=== PATIENT | male | born 1965 | race Caucasian/White ===

== ENCOUNTER 2021-07-05 04:00 | Emergency (ER) | payer BC, SELFPAY ==
[2021-07-05 04:03] VITALS: BP 91/43; PULSE 91; RESP 18; TEMP 35.8; O2SAT 100; BMI 33.4
--- NOTE | 2021-07-05 04:07 | XRR_ITS ---
PROCEDURE INFORMATION: Exam: XR Chest Exam date and time: 07/05/2021 4:07 AM Age: 55 years old Clinical indication: Dyspnea; Patient HX: SOB tonight; Additional info: Syncope TECHNIQUE: Imaging protocol: XR of the chest. Views: 1 view. COMPARISON: CR [facility] Ribs LEFT 03/16/2019 12:27 PM FINDINGS: Lungs: Unremarkable. No consolidation. Pleural spaces: Unremarkable. No pleural effusion. No pneumothorax. Heart/Mediastinum: Unremarkable. No cardiomegaly. Bones/joints: Unremarkable. XR/XR chest 1V portable [id number] IMPRESSION: No acute findings.
--- NOTE | 2021-07-05 04:08 | ECG_ITS ---
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 Measurements Intervals [place] Rate: 84 P: 25 ME: 156 QRS: 14 QRSD: 80 T: 29 QT: 366 QTc: 434 Interpretive Statements SINUS RHYTHM LOW QRS VOLTAGE IN PRECORDIAL LEADS [QRS DEFLECTION < 1.0 mV IN CHEST LEADS] INTERPRETATION BASED ON A DEFAULT AGE OF 40 YEARS No previous ECG available for comparison Electronically Signed On 07-05-2021 18:05:26 CDT by Mare Gillis M.D. [id number] f
--- NOTE | 2021-07-05 04:08 | W.ED.SYNCOPE ---
HPI - Syncope General: Chief Complaint: Syncope Stated Complaint: GI BLEED/ HYPOTENSION Time Seen by Provider: 07/05/21 04:05 Source: patient and EMS Mode of arrival: EMS Limitations: no limitations History of Present Illness: HPI narrative: 55-year-old male states that he is feeling unwell and lightheaded tonight. He states he had 3 syncopal episodes over the last couple hours. He states that he had a large dark tarry bowel movement. He states he has no history of GI bleeds in the past. Patient brought by EMS states his pressures were initially in the 80s blood pressure now is 91/43. He is a daily drinker and does appear jaundiced here. Denies any history of hepatitis or known cirrhosis. Associated symptoms: Deny fever(s) or headache(s) Review of Systems Const: Denies: fever(s), chills, body aches or change in appetite Eyes: Denies: blurry vision or eye discomfort ENMT: Denies: throat pain or dental pain Card: Reports: syncope Resp: Denies: dyspnea GI: Reports: hematochezia and melena : Denies: dysuria Musc: Denies: neck pain or back pain Skin/Breast: Denies: rash Neuro: Denies: headache(s) Psych: Denies: depression Ruy/Lymph: Denies: easy bruising All/Imm: Denies: urticaria Physical Exam Const: COMMON NORMALS: patient oriented x3 GENERAL APPEARANCE: in distress and ill appearing HENMT: COMMON NORMALS: normocephalic and atraumatic HEAD & SCALP: normocephalic and atraumatic Eye: COMMON NORMALS: Equal, round and reactive pupils present and EOMs intact bilaterally PUPIL: Yes Equal, round and reactive pupils present OTHER: scleral icterus Neck/C-Spine: COMMON NORMALS: full ROM and supple Chest: COMMONS NORMALS: normal inspection of the chest and normal palpation of entire chest wall Resp: COMMON NORMALS: normal respiratory effort, No retractions, No use of accessory muscles and clear to auscultation bilaterally AUSCULTATION: clear to auscultation bilaterally Cardio: COMMON NORMALS: regular rate, regular rhythm and No murmurs present (Cardio) RATE: regular rate RHYTHM: regular rhythm GI: COMMON NORMALS: Normal to inspection, nondistended, normoactive bowel sounds present, Soft to palpation, non-tender and no masses PALPATION: Yes Soft to palpation OTHER: rectal exam shows bright red blood Extremity: COMMON NORMALS: normal to inspection and full ROM Neuro: COMMON NORMALS: patient oriented x3, moves all extremities and no focal motor deficits Psych: COMMON NORMALS: mental status grossly normal, Normal thought process present and cooperative THOUGHT PROCESS: Normal thought process present Skin: COMMON NORMALS: no rashes or lesions noted and no wounds GENERAL SKIN EXAM: no rashes or lesions noted OTHER: juandiced Course Vital Signs: Vital signs: Vital Signs Temperature 96.5 F L 07/05/21 04:03 Pulse Rate 91 07/05/21 04:03 Respiratory Rate 18 07/05/21 04:03 Blood Pressure 91/43 07/05/21 04:03 Pulse Oximetry 100 07/05/21 04:03 MDM - Syncope MDM Narrative: Medical decision making narrative: 55-year-old male presented here with GI bleed and anemia likely causing his syncopal episode. Patient likely has undiagnosed cirrhosis appears to be in liver failure with an elevated INR. He also has an elevated bilirubin as well. Patient's blood pressure here is better after transfusion. Spoke to [facility] and will transfer there for higher level of care including GI availability. Lab Data: Labs: Lab Results 07/05/21 07/05/21 07/05/21 Range/Units 04:15 04:15 04:15 WBC 10.9 H (4.0-10.0) 10^3/ uL RBC 2.06 L (4.1-5.3) 10^6/u L Hgb 7.6 L (11.7-16.6) g/dL Hct 22.1 L (42.0-52.0) % MCV 107.3 H (80-94) fl MCH 36.9 H (28.0-34.0) pg MCHC 34.4 (30.0-36.0) g/dL RDW 17.8 H (12.1-15.1) % Plt Count 94 L (130-400) 10^3/c mm MPV 11.4 H (7.4-10.4) fL Neut % (Auto) 74.4 % Lymph % (Auto) 15.0 % [place] % (Auto) 9.2 % Eos % (Auto) 0.2 % Baso % (Auto) 0.6 % Neut # (Auto) 8.06 H (1.8-7.7) 10^3/u L Lymph # (Auto) 1.6 (0.8-4.8) 10^3/u L [place] # (Auto) 1.0 H (0.2-0.9) 10^3/u L Eos # (Auto) 0.0 (0.0-0.8) 10^3/u L Baso # (Auto) 0.1 (0.0-0.1) 10^3/u L Nucleated RBC % (a uto) 0 % Nucleated RBCs # 0.0 /100WBC PT 31.40 H (12.1-14.9) SECO NDS INR 2.97 H (0.8-1.2) Sodium 133 L (136-145) mmol/L Potassium 4.5 (3.5-5.1) mmol/L Chloride 103 (98-107) mmol/L Carbon Dioxide 16 L (22-29) mmol/L Anion Gap 18.5 (5-19) BUN 9 (6-20) mg/dL Creatinine 0.9 (0.7-1.2) mg/dL GFR Calculation 87.3 L (90-130) mL/min Glucose 108 (65-115) mg/dL Calculated Osmolal ity 275 L (285-295) mOsm/k g Lactate (0.5-2.2) mmol/L Calcium 7.0 L (8.5-10.5) mg/dL Total Bilirubin 4.4 H (0.15-1.2) mg/dL AST 46 H (0-40) U/L ALT 18 (0-41) U/L Alkaline Phosphata se 97 (40-130) IU/L Total Protein 5.3 L (6.6-8.7) g/dL Albumin 1.9 L (3.5-5.2) g/dL Globulin 3.4 (1.3-4.6) g/dL Lipase 62 H (13-60) U/L Ethyl Alcohol 35 H (0-10) mg/dL Hepatitis A IgM Ab (Nonreactive) Hep Bs Antigen (Nonreactive) Hep B Core Total A b (Nonreactive) Hepatitis C Antibo dy (Nonreactive) Blood Type Rho(D) Type Antibody Screen Crossmatch 07/05/21 07/05/21 07/05/21 Range/Units 04:15 04:15 04:30 WBC (4.0-10.0) 10^3/ uL RBC (4.1-5.3) 10^6/u L Hgb (11.7-16.6) g/dL Hct (42.0-52.0) % MCV (80-94) fl MCH (28.0-34.0) pg MCHC (30.0-36.0) g/dL RDW (12.1-15.1) % Plt Count (130-400) 10^3/c mm MPV (7.4-10.4) fL Neut % (Auto) % Lymph % (Auto) % [place] % (Auto) % Eos % (Auto) % Baso % (Auto) % Neut # (Auto) (1.8-7.7) 10^3/u L Lymph # (Auto) (0.8-4.8) 10^3/u L [place] # (Auto) (0.2-0.9) 10^3/u L Eos # (Auto) (0.0-0.8) 10^3/u L Baso # (Auto) (0.0-0.1) 10^3/u L Nucleated RBC % (a uto) % Nucleated RBCs # /100WBC PT (12.1-14.9) SECO NDS INR (0.8-1.2) Sodium (136-145) mmol/L Potassium (3.5-5.1) mmol/L Chloride (98-107) mmol/L Carbon Dioxide (22-29) mmol/L Anion Gap (5-19) BUN (6-20) mg/dL Creatinine (0.7-1.2) mg/dL GFR Calculation (90-130) mL/min Glucose (65-115) mg/dL Calculated Osmolal ity (285-295) mOsm/k g Lactate 5.8 H* (0.5-2.2) mmol/L Calcium (8.5-10.5) mg/dL Total Bilirubin (0.15-1.2) mg/dL AST (0-40) U/L ALT (0-41) U/L Alkaline Phosphata se (40-130) IU/L Total Protein (6.6-8.7) g/dL Albumin (3.5-5.2) g/dL Globulin (1.3-4.6) g/dL Lipase (13-60) U/L Ethyl Alcohol (0-10) mg/dL Hepatitis A IgM Ab Non-reactive (Nonreactive) Hep Bs Antigen Non-reactive (Nonreactive) Hep B Core Total A b Non-reactive (Nonreactive) Hepatitis C Antibo dy Non-reactive (Nonreactive) Blood Type O Positive Rho(D) Type Positive Antibody Screen Negative Crossmatch See Detail Imaging Data^: CXR: Attestation: I personally reviewed and interpreted this imaging study as follows: My impression: no acute abnormality EKG Data^: EKG 1: Attestation: I personally reviewed and interpreted this EKG as follows: EKG interpretation date: 07/05/21 EKG interpretation time: 04:38 Interpretation: nsr hr [address] or t wave abnormalities qrs 80 qtc 407 Critical Care Time Critical Care Time: Critical Care Time: Yes Total Critical Care Time: 35 Attestation: This case had a high probability of a clinically significant, sudden, or life threatening deterioration of this patient's condition which required my full and direct attention, intervention and personal management. Discharge Plan Discharge Patient Disposition: Xfer Short-Term Hosp Clinical Impression: GI bleed, Elevated INR, Syncope, Anemia Condition: Stable Coding Level of Care Code ED Instructor Warper for Chg Fwd Exam Comprehensive
[2021-07-05 04:21] LABS: Basophils # 0.1 10^3/uL (0.0-0.1); Basophils % 0.6 %; Eosinophils % 0.2 %; Hematocrit 22.1 % (42.0-52.0); Hemoglobin 7.6 g/dL (11.7-16.6); Lymphocytes # 1.6 10^3/uL (0.8-4.8); Mean Corpuscular HGB Conc 34.4 g/dL (30.0-36.0); Mean Corpuscular Hemoglobin 36.9 pg (28.0-34.0); Mean Corpuscular Volume 107.3 fl (80-94); Mean Platelet Volume 11.4 fL (7.4-10.4); Monocytes % 9.2 %; Neutrophils # 8.06 10^3/uL (1.8-7.7); Neutrophils % 74.4 %; Nucleated Red Blood Cells % 0 %; Platelet Count 94 10^3/cmm (130-400); Red Blood Count 2.06 10^6/uL (4.1-5.3); Red Cell Distribution Width 17.8 % (12.1-15.1); White Blood Count 10.9 10^3/uL (4.0-10.0)
[2021-07-05 04:36] LABS: INR 2.97 (0.8-1.2)
[2021-07-05] MEDS: sodium chloride 0.9% 1,000 ML 999 ML IV (04:44)
[2021-07-05 04:50] LABS: Alanine Aminotransferase 18 U/L (0-41); Albumin Level 1.9 g/dL (3.5-5.2); Alcohol Level 35 mg/dL (0-10); Alkaline Phosphatase 97 IU/L (40-130); Anion Gap 18.5 (5-19); Aspartate Amino Transferase 46 U/L (0-40); Blood Urea Nitrogen 9 mg/dL (6-20); Carbon Dioxide 16 mmol/L (22-29); Chloride 103 mmol/L (98-107); Globulin 3.4 g/dL (1.3-4.6); Glomerular Filtration Rate 87.3 mL/min (90-130); Glucose 108 mg/dL (65-115); Lipase 62 U/L (13-60); Osmolality Calculated 275 mOsm/kg (285-295); Potassium 4.5 mmol/L (3.5-5.1); Sodium 133 mmol/L (136-145); Total Bilirubin 4.4 mg/dL (0.15-1.2); Total Protein 5.3 g/dL (6.6-8.7)
[2021-07-05 04:58] LABS: Lactate (Lactic Acid level) 5.8 mmol/L (0.5-2.2)
[2021-07-05 05:03] LABS: Hepatitis A Antibody IgM Non-Reactive (Nonreactive); Hepatitis B Core AB, Total Non-Reactive (Nonreactive); Hepatitis B Surface AB 3.5 (11.5-1000); Hepatitis B Surface Antigen Non-Reactive (Nonreactive); Hepatitis C Virus Antibody Non-Reactive (Nonreactive)
[2021-07-05 05:23] VITALS: BP 115/51; PULSE 78; RESP 18; TEMP 36.8; O2SAT 97
[2021-07-05] MEDS: pantoprazole 40 mg SDV 80 MG IVP (05:36)
[2021-07-05] MEDS: pantoprazole 40 MG in sodium chloride 0.9% (plus) 100 ML 20 MG IV (05:37)
[2021-07-05 05:40] VITALS: BP 157/69; PULSE 71; RESP 16; TEMP 36.6; O2SAT 100
[2021-07-05 05:47] VITALS: BP 147/64; PULSE 85; RESP 16; TEMP 36.9
== END 2021-07-05 06:52 | disposition short-term general hospital (02) ==
PROVIDERS: Emergency Provider Emergency Medicine
DX: R55 Syncope and collapse (principal); K92.2 Gastrointestinal hemorrhage, unspecified; R79.9 Abnormal finding of blood chemistry, unspecified; D64.9 Anemia, unspecified
CPT/HCPCS: 36430; 71045; 80053; 80307; 83605; 83690; 85025; 85610; 86705; 86706; 86709; 86803; 86850; 86900; 86920; 87340; 93005; 96365; 96366; 96375; 99285; C9113; J7030; P9016

== ENCOUNTER 2021-08-17 10:16 | Emergency (ER) | payer BC, SELFPAY ==
[2021-08-17] VITALS (38 sets, daily range): BP systolic 97–131; BP diastolic 50–81; PULSE 79–108; RESP 16–20; TEMP 36.8–37.2; O2SAT 94–100; BMI 34.2
--- NOTE | 2021-08-17 10:43 | PC.NURSE ---
report given to celia castelan.
--- NOTE | 2021-08-17 10:56 | ECG_ITS ---
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
--- NOTE | 2021-08-17 10:56 | XRR_ITS ---
PROCEDURE INFORMATION: Exam: XR Chest Exam date and time: 08/17/2021 10:56 AM Age: 55 years old Clinical indication: Cough and dyspnea; Additional info: Dyspnea/cough TECHNIQUE: Imaging protocol: XR of the chest. Views: 1 view. COMPARISON: CR XR chest 1V portable [id number] 07/05/2021 4:26 AM FINDINGS: Lungs: Unremarkable. No consolidation. Pleural spaces: Unremarkable. No pleural effusion. No pneumothorax. Heart/Mediastinum: Unremarkable. No cardiomegaly. Bones/joints: Unremarkable. XR/XR chest 1V portable [id number] IMPRESSION: No acute findings. Radiation Dose CTDIVOL = (mGy): DLP = (mGy-cm)
--- NOTE | 2021-08-17 10:56 | CT_ITS ---
WS: [id number] CT ABDOMEN PELVIS TECHNIQUE: Contrast-enhanced CT of the abdomen and pelvis with coronal and sagittal reformatted image s. CLINICAL INFORMATION: abd pain COMPARISON: None. DLP: 2030.[address] scans at [facility] use at least one of these dose optimization techniques: automated e xposure control; mA and/or kV adjustment per patient size (includes targeted exams where dose is matc hed to clinical indication); or iterative reconstruction. FINDINGS: Small right greater than left pleural effusions. Hepatomegaly with diffuse fatty infiltration of the liver. Fluid in the Gallbladder fossa likely related to hepatic disease. Perihepatic and perisplenic ascites. Upper abdominal and paraesophageal varices suggesting portal hypertension. Diffuse thickening of the transverse colon suspicious for colitis. Sigmoid colon appears normal. No e vidence of high-grade obstruction. Fatty atrophy of the pancreas. Prominent lymph nodes in the fabiano hepatis likely reactive. Portal vein and splenic vein. Normal appendix in the right lower quadrant. A drenal glands are normal. Normal renal parenchymal enhancement. No hydronephrosis. Incidental renal cysts. Some too small to ch aracterize. Incidental fat-containing umbilical hernia. Small volume ascites in the pelvis. Disc spac e narrowing worse at L2-3. CT/CT abdomen pelvis w con* [id number] IMPRESSION: 1. Mild thickening and induration about the transverse colon suspicious for in fectious or inflammatory colitis. 2. Normal sigmoid colon. 3. Normal appendix in the right lower quadrant. 4. 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 Small esophageal hiata l hernia. No free air. 5. Hepatomegaly with diffuse fatty infiltration. Perihepatic and perisplenic a scites. Upper abdominal and paraesophageal varices. 6. Small right greater than left pleural effusions. 7. Small amount of ascites in the pelvis.
--- NOTE | 2021-08-17 10:57 | ED_ITS ---
HPI - Abdominal Pain General: Chief Complaint: Abdominal Pain Stated Complaint: BLOOD IN STOOL/HX OF RECENT GI BLEED Time Seen by Provider: 08/17/21 10:49 History of Present Illness: HPI narrative: 55-year-old male presents to ER with complaints of melena. He recently had a GI bleed. July 05 he presented this ER and on evaluation was found to have an ulcer at anastomosis site he was given blood and transferred to [facility] there he was giv en more blood and eventually getting a total of 3 units they monitored him conservatively and ultimately will discharge him home he states he did not have surgery. He was sent home on Carafate. Today he is comes in complaining of black tarry stools this morning but no kiesha blood. MD elicited complaint: abdominal pain Pertinent past history: gastrointestinal bleeding and other (Previous ulcer at anastomosis site of gastric bypass) Onset (ago): hour(s) Pain Consistency: intermittent Location: Epigastric Severity: mild Quality: cramping Radiation: none Exacerbating factors: nothing Relieving factors: nothing Associated Symptoms: Reports anorexia, bloating, change in stool character, GI cramping, melena, nausea and poor appetite; Denies belching, change in bowel habits, chills, coffee ground emesis, constipation, diarrhea, dyspepsia, dysuria, excessive flatus, fever(s), heartburn, hematochezia, hematuria, hematemesis, fecal incontinence, loose stools, syncope and vomiting Review of Systems Const: Denies: fever(s) or chills ENMT: Denies: throat pain, ear or mastoid pain, nasal discharge or nasal congestion Card: Denies: syncope Resp: Denies: dyspnea, productive cough or non-productive cough GI: Reports: nausea, bloating, GI cramping, change in stool character and melena; Denies: vomiting, hematemesis, coffee ground emesis, heartburn, diarrhea, constipation, belching, excessive flatus, fecal incontinence, change in bowel habits or hematochezia : Denies: dysuria or hematuria Skin/Breast: Denies: rash or pruritus Physical Exam Const: COMMON NORMALS: no acute distress GENERAL APPEARANCE: cooperative and comfortable ORIENTATION/CONSCIOUSNESS: Yes awake, Yes oriented to person, Yes oriented to place and Yes oriented to time HENMT: COMMON NORMALS: normocephalic, atraumatic, hearing grossly normal bilaterally, external ears normal, EAC's normal, TM's normal bilaterally, Normal nasal mucous membranes and turbinates present, moist oral mucous membranes and oropharynx normal HEAD & SCALP: normocephalic and atraumatic NOSE: Normal nasal mucous membranes and turbinates present EXTERNAL EAR: Yes external ears normal EXTERNAL AUDITORY CANAL: EAC's normal TYMPANIC MEMBRANE: TM's normal bilaterally Eye: COMMON NORMALS: Equal, round and reactive pupils present, EOMs intact bilaterally, conjunctivae normal and no scleral icterus CONJUNCTIVA: Yes conjunctivae normal PUPIL: Yes Equal, round and reactive pupils present Neck/C-Spine: COMMON NORMALS: full ROM, no lymphadenopathy, supple and no JVD Lymph: LYMPHATIC: no lymphadenopathy noted and no lymphedema noted Resp: COMMON NORMALS: normal respiratory effort, No retractions, No use of accessory muscles and clear to auscultation bilaterally AUSCULTATION: clear to auscultation bilaterally Cardio: COMMON NORMALS: no JVD, regular rate, regular rhythm and No murmurs present (Cardio) RATE: regular rate RHYTHM: regular rhythm GI: COMMON NORMALS: No hepatosplenomegaly present AUSCULTATION: Yes no rmoactive bowel sounds PALPATION: Yes Tenderness to palpation present (GI) (Diffuse), No Guarding due to palpation present (GI) and Yes No hepatosplenomegaly present RECTAL EXAM: Yes Visual inspection abnormal, Yes Abnormal stool present Abnormal stool details: blood-tinged stool and maroon stool and Yes heme positive stool Extremity: COMMON NORMALS: normal to inspection, capillary refill normal, no clubbing, cyanosis or edema, no calf tenderness and no pedal edema Neuro: SENSORIUM/ORIENTATION: Yes oriented to person, Yes oriented to place and Yes oriented to time Skin: COMMON NORMALS: no rashes or lesions noted GENERAL SKIN EXAM: no rashes or lesions noted Course 2 Vital Signs: Vital signs: Vital Signs Temperature 98.9 F 08/17/21 18:20 Pulse Rate 98 08/17/21 20:31 Respiratory Rate 18 08/17/21 20:31 Blood Pressure 123/72 08/17/21 20:31 Pulse Oximetry 95 08/17/21 20:31 MDM - Abdominal Pain MDM Narrative: Medical decision making narrative: Initial patient arrival blood pressure stable however patient with large bloody bowel movement with a significant volume of blood estimated to be over a liter repeat hemoglobin shows significant drop at that point. He is given 2 units of uncrossed match blood started on Levophed and placed in Trendelenburg position. His blood pressure improved. Discussed with [facility] they are willing to accept the patient on transfer Dr. Santiago will accept him. He will need further GI review and possible surgery depending on findings. Discussed with patient and family they are agreeable to transfer. Patient transferred because of not available GI services that he will require here Lab Data: Labs: Lab Results 08/17/21 08/17/21 08/17/21 11:50 11:50 11:50 WBC Cancelled Corrected WBC Cancelled RBC Cancelled Hgb Cancelled Hct Cancelled MCV Cancelled MCH Cancelled MCHC Cancelled RDW Cancelled Plt Count Cancelled MPV Cancelled Gran % Cancelled Neut % (Auto) Cancelled Lymph % (Auto) Cancelled Graves % (Auto) Cancelled Eos % (Auto) Cancelled Baso % (Auto) Cancelled Neut # (Auto) Cancelled Lymph # (Auto) Cancelled Graves # (Auto) Cancelled Eos # (Auto) Cancelled Baso # (Auto) Cancelled Absolute Gran (aut o) Cancelled Nucleated RBC % (a uto) Cancelled Nucleated RBCs # Cancelled PT 25.80 SECONDS H S ECONDS (12.1-14.9) INR 2.31 H (0.8-1.2) APTT 41.2 SECONDS H SE CONDS (23.9-36.7) Sodium Potassium Chloride Carbon Dioxide Anion Gap BUN Creatinine GFR Calculation Glucose Calculated Osmolal ity Lactic Acid 3.9 mmol/L H mmol /L (0.5-2.2) Lactic Acid (Sepsi s) Calcium Total Bilirubin AST ALT Alkaline Phosphata se Total Protein Albumin Globulin Urine Color Urine Appearance Urine pH Ur Specific Gravit y Urine Protein Urine Glucose (UA) Urine Ketones Urine Blood Urine Nitrate Urine Bilirubin Urine Urobilinogen Ur Leukocyte Clarissa ase SARS-CoV-2 Ag (Rap id) Blood Type Rho(D) Type Antibody Screen Crossmatch 08/17/21 08/17/21 08/17/21 11:50 12:35 14:20 WBC 6.6 10^3/uL 10^3/ uL (4.0-10.0) Corrected WBC RBC 2.34 10^6/uL L 10 ^6/uL (4.1-5.3) Hgb 7.6 g/dL L g/dL (11.7-16.6) Hct 22.8 % L % (42.0-52.0) MCV 97.4 fl H fl (80-94) MCH 32.5 pg pg (28.0-34.0) MCHC 33.3 g/dL g/dL (30.0-36.0) RDW 22.2 % H % (12.1-15.1) Plt Count 130 10^3/cmm 10^3 /cmm (130-400) MPV Not Reportable Gran % Neut % (Auto) 67.0 % % Lymph % (Auto) 18.4 % % Graves % (Auto) 13.0 % % Eos % (Auto) 0.3 % % Baso % (Auto) 0.8 % % Neut # (Auto) 4.45 10^3/uL 10^3 /uL (1.8-7.7) Lymph # (Auto) 1.2 10^3/uL 10^3/ uL (0.8-4.8) Graves # (Auto) 0.9 10^3/uL 10^3/ uL (0.2-0.9) Eos # (Auto) 0.0 10^3/uL 10^3/ uL (0.0-0.8) Baso # (Auto) 0.1 10^3/uL 10^3/ uL (0.0-0.1) Absolute Gran (aut o) Nucleated RBC % (a uto) 0 % % Nucleated RBCs # 0.0 /100WBC /100W BC PT INR APTT Sodium 135 mmol/L L mmol /L (136-145) Potassium 4.2 mmol/L mmol/L (3.5-5.1) Chloride 104 mmol/L mmol/L (98-107) Carbon Dioxide 22 mmol/L mmol/L (22-29) Anion Gap 13.2 (5-19) BUN 8 mg/dL mg/dL (6-20) Creatinine 0.7 mg/dL mg/dL (0.7-1.2) GFR Calculation 116.7 mL/min mL/m in (90-130) Glucose 107 mg/dL mg/dL (65-115) Calculated Osmolal ity 279 mOsm/kg L mOs m/kg (285-295) Lactic Acid Lactic Acid (Sepsi s) Calcium 7.4 mg/dL L mg/dL (8.5-10.5) Total Bilirubin 3.0 mg/dL H mg/dL (0.15-1.2) AST 38 U/L U/L (0-40) ALT 12 U/L U/L (0-41) Alkaline Phosphata se 78 IU/L IU/L (40-130) Total Protein 6.6 g/dL g/dL (6.6-8.7) Albumin 2.2 g/dL L g/dL (3.5-5.2) Globulin 4.4 g/dL g/dL (1.3-4.6) Urine Color Kimberly (Yellow) Urine Appearance Clear (CLEAR) Urine pH 6.5 (5-7) Ur Specific Gravit y 1.005 (1.005-1.030) Urine Protein Neg (Negative) Urine Glucose (UA) Norm (Normal) Urine Ketones Negative (Negative) Urine Blood Neg (Negative) Urine Nitrate Negative (Negative) Urine Bilirubin 1+ H (Negative) Urine Urobilinogen 1 mg/dL H mg/dL (Negative) Ur Leukocyte Clarissa ase Negative (Negative) SARS-CoV-2 Ag (Rap id) Blood Type Rho(D) Type Antibody Screen Crossmatch 08/17/21 08/17/21 08/17/21 15:04 15:04 16:19 WBC 7.4 10^3/uL 10^3/ uL (4.0-10.0) Corrected WBC RBC 2.05 10^6/uL L 10 ^6/uL (4.1-5.3) Hgb 6.7 g/dL L g/dL (11.7-16.6) Hct 19.7 % L* % (42.0-52.0) MCV 96.1 fl H fl (80-94) MCH 32.7 pg pg (28.0-34.0) MCHC 34.0 g/dL g/dL (30.0-36.0) RDW 22.2 % H % (12.1-15.1) Plt Count 115 10^3/cmm L 10 ^3/cmm (130-400) MPV 10.2 fL fL (7.4-10.4) Gran % Neut % (Auto) 61.0 % % Lymph % (Auto) 26.0 % % Graves % (Auto) 11.8 % % Eos % (Auto) 0.1 % % Baso % (Auto) 0.7 % % Neut # (Auto) 4.51 10^3/uL 10^3 /uL (1.8-7.7) Lymph # (Auto) 1.9 10^3/uL 10^3/ uL (0.8-4.8) Graves # (Auto) 0.9 10^3/uL 10^3/ uL (0.2-0.9) Eos # (Auto) 0.0 10^3/uL 10^3/ uL (0.0-0.8) Baso # (Auto) 0.1 10^3/uL 10^3/ uL (0.0-0.1) Absolute Gran (aut o) Nucleated RBC % (a uto) 0 % % Nucleated RBCs # 0.0 /100WBC /100W BC PT INR APTT Sodium Potassium Chloride Carbon Dioxide Anion Gap BUN Creatinine GFR Calculation Glucose Calculated Osmolal ity Lactic Acid Lactic Acid (Sepsi s) 2.6 mmol/L H mmol /L (0.5-2.2) Calcium Total Bilirubin AST ALT Alkaline Phosphata se Total Protein Albumin Globulin Urine Color Urine Appearance Urine pH Ur Specific Gravit y Urine Protein Urine Glucose (UA) Urine Ketones Urine Blood Urine Nitrate Urine Bilirubin Urine Urobilinogen Ur Leukocyte Clarissa ase SARS-CoV-2 Ag (Rap id) Blood Type O Positive Rho(D) Type Positive Antibody Screen Negative Crossmatch See Detail 08/17/21 18:33 WBC Corrected WBC RBC Hgb Hct MCV MCH MCHC RDW Plt Count MPV Gran % Neut % (Auto) Lymph % (Auto) Graves % (Auto) Eos % (Auto) Baso % (Auto) Neut # (Auto) Lymph # (Auto) Graves # (Auto) Eos # (Auto) Baso # (Auto) Absolute Gran (aut o) Nucleated RBC % (a uto) Nucleated RBCs # PT INR APTT Sodium Potassium Chloride Carbon Dioxide Anion Gap BUN Creatinine GFR Calculation Glucose Calculated Osmolal ity Lactic Acid Lactic Acid (Sepsi s) Calcium Total Bilirubin AST ALT Alkaline Phosphata se Total Protein Albumin Globulin Urine Color Urine Appearance Urine pH Ur Specific Gravit y Urine Protein Urine Glucose (UA) Urine Ketones Urine Blood Urine Nitrate Urine Bilirubin Urine Urobilinogen Ur Leukocyte Clarissa ase SARS-CoV-2 Ag (Rap id) Negative (Negative) Blood Type Rho(D) Type Antibody Screen Crossmatch Discharge Plan Discharge Patient Disposition: Xfer Short-Term Hosp Clinical Impression: Acute GI bleeding, Hypovolemic shock Coding Level of Care Code ED Database Marketing Specialist for Naz Fwd Exam Comprehensive
[2021-08-17 12:14] LABS: INR 2.31 (0.8-1.2)
[2021-08-17] MEDS: iohexol 300 mg/mL 100 mL Btl IV (12:17)
[2021-08-17 12:19] LABS: Lactic Sepsis W/Reflex 3.9 mmol/L (0.5-2.2)
[2021-08-17 12:20] LABS: Alanine Aminotransferase 12 U/L (0-41); Albumin Level 2.2 g/dL (3.5-5.2); Alkaline Phosphatase 78 IU/L (40-130); Aspartate Amino Transferase 38 U/L (0-40); Blood Urea Nitrogen 8 mg/dL (6-20); Calcium 7.4 mg/dL (8.5-10.5); Carbon Dioxide 22 mmol/L (22-29); Chloride 104 mmol/L (98-107); Globulin 4.4 g/dL (1.3-4.6); Glomerular Filtration Rate 116.7 mL/min (90-130); Glucose 107 mg/dL (65-115); Osmolality Calculated 279 mOsm/kg (285-295); Sodium 135 mmol/L (136-145); Total Protein 6.6 g/dL (6.6-8.7)
[2021-08-17 12:26] LABS: Anion Gap 13.2 (5-19); Potassium 4.2 mmol/L (3.5-5.1)
[2021-08-17 12:42] LABS: Basophils # 0.1 10^3/uL (0.0-0.1); Basophils % 0.8 %; Eosinophils % 0.3 %; Hematocrit 22.8 % (42.0-52.0); Hemoglobin 7.6 g/dL (11.7-16.6); Lymphocytes # 1.2 10^3/uL (0.8-4.8); Lymphocytes % 18.4 %; Mean Corpuscular HGB Conc 33.3 g/dL (30.0-36.0); Mean Corpuscular Hemoglobin 32.5 pg (28.0-34.0); Mean Corpuscular Volume 97.4 fl (80-94); Monocytes # 0.9 10^3/uL (0.2-0.9); Neutrophils # 4.45 10^3/uL (1.8-7.7); Nucleated Red Blood Cells % 0 %; Red Blood Count 2.34 10^6/uL (4.1-5.3); Red Cell Distribution Width 22.2 % (12.1-15.1); White Blood Count 6.6 10^3/uL (4.0-10.0)
[2021-08-17 12:46] LABS: Partial Thromboplastin Time 41.2 SECONDS (23.9-36.7)
[2021-08-17 13:13] LABS: Platelet Count 130 10^3/cmm (130-400)
[2021-08-17 13:45] LABS: Reflex Lactate Order REFLEX LACTIC ORDERD
[2021-08-17 14:08] LABS: Slide Review Slide Review Perform
[2021-08-17] MEDS: ciprofloxacin 400 MG/200 ML PREMIX 200 MG IV (14:39)
[2021-08-17 14:53] LABS: Add Urine Microscopic? NO; Charge for UA Resulting for Rev
[2021-08-17 15:02] LABS: Blood Urine Neg (Negative); Glucose Urine UA Norm (Normal); Ketones Urine Negative (Negative); Nitrate Urine Negative (Negative); Protein Urine Neg (Negative); Specific Gravity, Urine 1.005 (1.005-1.030); Urine Appearance Clear (CLEAR); Urine Color Amber (Yellow); pH Urine 6.5 (5-7)
[2021-08-17 15:03] LABS: Bilirubin Urine 1+ (Negative); Leukocyte Esterase Urine Negative (Negative); Urobilinogen Urine 1 mg/dL (Negative)
[2021-08-17 15:27] LABS: Lactic Acid level (Lactate) 2.6 mmol/L (0.5-2.2)
[2021-08-17 16:29] LABS: Basophils # 0.1 10^3/uL (0.0-0.1); Basophils % 0.7 %; Eosinophils % 0.1 %; Hemoglobin 6.7 g/dL (11.7-16.6); Lymphocytes # 1.9 10^3/uL (0.8-4.8); Mean Corpuscular Hemoglobin 32.7 pg (28.0-34.0); Mean Corpuscular Volume 96.1 fl (80-94); Mean Platelet Volume 10.2 fL (7.4-10.4); Monocytes # 0.9 10^3/uL (0.2-0.9); Monocytes % 11.8 %; Neutrophils # 4.51 10^3/uL (1.8-7.7); Nucleated Red Blood Cells % 0 %; Platelet Count 115 10^3/cmm (130-400); Red Blood Count 2.05 10^6/uL (4.1-5.3); Red Cell Distribution Width 22.2 % (12.1-15.1); White Blood Count 7.4 10^3/uL (4.0-10.0)
[2021-08-17 16:40] LABS: Hematocrit 19.7 % (42.0-52.0)
[2021-08-17 19:28] LABS: SARS Covid-2 Antigen Negative (Negative)
--- NOTE | 2021-08-17 20:50 | PC.NURSE ---
2 nd unit of plasma sent with ems to start enroute.
== END 2021-08-17 20:52 | disposition short-term general hospital (02) ==
PROVIDERS: Emergency Medicine; Emergency Provider Family Medicine
DX: K29.01 Acute gastritis with bleeding (principal); R57.1 Hypovolemic shock
CPT/HCPCS: 36430; 71045; 74177; 80053; 81003; 83605; 85025; 85610; 85730; 86850; 86900; 86920; 86927; 87040; 87426; 93005; 96365; 96367; 99291; J0744; J7030; P9016; P9017; Q9967; S0030

== ENCOUNTER 2021-09-30 21:05 | Emergency (ER) | payer BC, SELFPAY ==
--- NOTE | 2021-09-30 21:07 | XRR_ITS ---
PROCEDURE INFORMATION: Exam: XR Chest Exam date and time: 09/30/2021 9:07 PM Age: 55 years old Clinical indication: Chest wall pain; Additional info: Weakness TECHNIQUE: Imaging protocol: XR of the chest. Views: 1 view. COMPARISON: CR XR chest 1V portable [id number] 08/17/2021 11:00 AM FINDINGS: Lungs: Unremarkable. No consolidation. Pleural spaces: Unremarkable. No pleural effusion. No pneumothorax. Heart/Mediastinum: Unremarkable. No cardiomegaly. Bones/joints: Unremarkable. XR/XR chest 1V portable [id number] IMPRESSION: No acute findings.
--- NOTE | 2021-09-30 21:08 | ECG_ITS ---
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 Measurements Intervals [place] Rate: 94 P: 20 [place]: 157 QRS: 33 QRSD: 96 T: 91 QT: 370 QTc: 463 Interpretive Statements SINUS RHYTHM LOW QRS VOLTAGE IN PRECORDIAL LEADS [QRS DEFLECTION < 1.0 mV IN CHEST LEADS] ST DEVIATION AND MODERATE T-WAVE ABNORMALITY, CONSIDER ANTERIOR ISCHEMIA [-0.1+ mV T-WAVE IN V3/V4] Compared to ECG 08/17/2021 13:43:10 T-wave abnormality now present Possible ischemia now present Electronically Signed On 09-30-2021 22:06:23 PHYSICIAN OBSTETRICIAN by Mare Gillis M.D. [id number]
[2021-09-30 21:10] VITALS: BP 137/87; PULSE 99; RESP 18; TEMP 36.6; O2SAT 96; BMI 31.9
--- NOTE | 2021-09-30 21:15 | W.ED.GENADLT ---
Documented by User: Rashel Gonzalez MD 10/13/21 19:52 HPI - General Adult General: Chief complaint: General Medical Stated complaint: BP low, Dizzy, sluggish, cant stay awake Time Seen by Provider: 09/30/21 21:15 History of Present Illness: HPI narrative: Mr. Clemens is a 55-year-old gentleman with significant past medical history of hypothyroidism and liver disease who presents to the emergency department due to generalized symptoms. Onset of symptoms has been in the past few days and was gradual. He endorses generalized weakness, difficulty staying awake, and poor p.o. intake. His is noticed that he seems more confused with different speech pattern. No focal neurologic deficits appreciated or endorsed. He did have a fall without head strike or loss of consciousness approximately 4 feet off a deck as a dog got caught up in between his legs. He endorses mild associated chest wall pain with this however no significant contusions. He denies hematemesis or changes in bowel movements. No other specific exacerbating relieving factors. He has had similar episodes in the past. Review of Systems General: Reports: 10 or more systems reviewed and unremarkable except in HPI and below PFS ED [facility]: Medical History (Updated 10/13/21 @ 13:53 by Asad Duckworth DO) Alcohol abuse Alcoholic liver disease Esophageal varices determined by endoscopy GI bleed Hypothyroidism Liver cirrhosis Surgical History H/O esophagogastroduodenoscopy H/O gastric bypass Hx of shoulder surgery Status post colonoscopy Social History Smoking and tobacco status: never smoked Physical Exam Narrative: EXAM NARRATIVE: GENERAL/CONSTITUTIONAL - mildly ill-appearing. Pallor. Eyes - PERRL, conjunctival pallor. no conjunctival injection or gross scleral icterus ENMT - Atraumatic external nose and ears. Moist mucous membranes NECK - supple. trachea midline CARDIOVASCULAR - regular rate and rhythm. RESPIRATORY - clear to auscultation bilaterally. No retractions or accessory muscle use. ABDOMEN/GI - Nontender/Nondistended. No tenderness to percussion or evidence of peritonitis. Fluid wave appreciated on clinical exam MSK - Extremities without obvious deformity or tenderness to palpation SKIN - Warm, Dry. No large contusion NEURO - alert and appropriately oriented. Moves all extremities equally. Course ED course: - Patient was seen and evaluated by me at bedside - Patient placed on cardiac monitors, IV access obtained - Initial evaluation notable for exam as above - Labs notable for no leukocytosis, patient is likely hemoconcentrated without evidence of decreased hemoglobin. Thrombocytopenia noted again. Metabolic panel without acute derangement to explain symptoms. Ammonia is elevated. Both TSH and free T4 are elevated of unclear etiology. No evidence of urinary tract infection. - Imaging notable for negative head CT and negative chest x-ray. Both were pending at time of handoff of patient care. -Patient care handed off to overnight ED physician Dr. Armas pending completion of ED evaluation and disposition decision. Vital Signs: Vital signs: Vital Signs Temperature 97.9 F 09/30/21 21:10 Pulse Rate 78 10/01/21 00:32 Respiratory Rate 18 10/01/21 00:32 Blood Pressure 124/80 10/01/21 00:32 Pulse Oximetry 97 10/01/21 00:32 MDM - General Adult Medical Records: Attestation: I reviewed the patient's medical records. Lab Data: Attestation: I reviewed the patient's lab results. Labs: Lab Results 09/30/21 09/30/21 09/30/21 20:36 21:39 21:39 WBC 4.0 10^3/uL 10^3/ uL (4.0-10.0) RBC 3.84 10^6/uL L 10 ^6/uL (4.1-5.3) Hgb 11.9 g/dL g/dL (11.7-16.6) Hct 34.3 % L % (42.0-52.0) MCV 89.3 fl fl (80-94) MCH 31.0 pg pg (28.0-34.0) MCHC 34.7 g/dL g/dL (30.0-36.0) RDW 18.5 % H % (12.1-15.1) Plt Count 103 10^3/cmm L 10 ^3/cmm (130-400) MPV 10.1 fL fL (7.4-10.4) Neut % (Auto) 43.6 % % Lymph % (Auto) 38.4 % % [place] % (Auto) 15.1 % % Eos % (Auto) 1.5 % % Baso % (Auto) 1.2 % % Neut # (Auto) 1.76 10^3/uL L 10 ^3/uL (1.8-7.7) Lymph # (Auto) 1.6 10^3/uL 10^3/ uL (0.8-4.8) [place] # (Auto) 0.6 10^3/uL 10^3/ uL (0.2-0.9) Eos # (Auto) 0.1 10^3/uL 10^3/ uL (0.0-0.8) Baso # (Auto) 0.1 10^3/uL 10^3/ uL (0.0-0.1) Nucleated RBC % (a uto) 0 % % Nucleated RBCs # 0.0 /100WBC /100W BC PT 24.30 SECONDS H S ECONDS (12.1-14.9) INR 2.13 H (0.8-1.2) Specimen Type Sample Site ABG pH ABG pCO2 ABG pO2 ABG HCO3 ABG Base Excess Cash Test Hematocrit O2 Delivery Device Med Surg Nurse ID Sodium Potassium Chloride Carbon Dioxide Anion Gap BUN Creatinine GFR Calculation Glucose Calculated Osmolal ity Lactate Calcium Total Bilirubin AST ALT Alkaline Phosphata se Ammonia Total Protein Albumin Globulin TSH Free T4 Urine Color Dark yellow (Yellow) Urine Appearance Clear (CLEAR) Urine pH 5 (5-7) Ur Specific Gravit y 1.025 (1.005-1.030) Urine Protein Neg (Negative) Urine Glucose (UA) Norm (Normal) Urine Ketones Negative (Negative) Urine Blood Neg (Negative) Urine Nitrate Negative (Negative) Urine Bilirubin 1+ H (Negative) Urine Urobilinogen 4 mg/dL H mg/dL (Negative) Ur Leukocyte Clarissa ase Negative (Negative) Blood Type Rho(D) Type Antibody Screen 09/30/21 09/30/21 09/30/21 21:39 21:39 21:39 WBC RBC Hgb Hct MCV MCH MCHC RDW Plt Count MPV Neut % (Auto) Lymph % (Auto) [place] % (Auto) Eos % (Auto) Baso % (Auto) Neut # (Auto) Lymph # (Auto) [place] # (Auto) Eos # (Auto) Baso # (Auto) Nucleated RBC % (a uto) Nucleated RBCs # PT INR Specimen Type Sample Site ABG pH ABG pCO2 ABG pO2 ABG HCO3 ABG Base Excess Cash Test Hematocrit O2 Delivery Device Med Surg Nurse ID Sodium 136 mmol/L mmol/L (136-145) Potassium 3.5 mmol/L mmol/L (3.5-5.1) Chloride 106 mmol/L mmol/L (98-107) Carbon Dioxide 17 mmol/L L mmol/ L (22-29) Anion Gap 16.5 (5-19) BUN 9 mg/dL mg/dL (6-20) Creatinine 0.6 mg/dL L mg/dL (0.7-1.2) GFR Calculation 139.4 mL/min H mL /min (90-130) Glucose 76 mg/dL mg/dL (65-115) Calculated Osmolal ity 279 mOsm/kg L mOs m/kg (285-295) Lactate 1.9 mmol/L mmol/L (0.5-2.2) Calcium 7.5 mg/dL L mg/dL (8.5-10.5) Total Bilirubin 2.5 mg/dL H mg/dL (0.15-1.2) AST 36 U/L U/L (0-40) ALT 15 U/L U/L (0-41) Alkaline Phosphata se 65 IU/L IU/L (40-130) Ammonia Total Protein 8.2 g/dL g/dL (6.6-8.7) Albumin 2.4 g/dL L g/dL (3.5-5.2) Globulin 5.8 g/dL H g/dL (1.3-4.6) TSH 5.49 uIU/mL H uIU /mL (0.27-4.20) Free T4 1.79 ng/dL H ng/d L (0.82-1.77) Urine Color Urine Appearance Urine pH Ur Specific Gravit y Urine Protein Urine Glucose (UA) Urine Ketones Urine Blood Urine Nitrate Urine Bilirubin Urine Urobilinogen Ur Leukocyte Clarissa ase Blood Type Rho(D) Type Antibody Screen 09/30/21 09/30/21 09/30/21 22:22 22:30 22:53 WBC RBC Hgb Hct MCV MCH MCHC RDW Plt Count MPV Neut % (Auto) Lymph % (Auto) [place] % (Auto) Eos % (Auto) Baso % (Auto) Neut # (Auto) Lymph # (Auto) [place] # (Auto) Eos # (Auto) Baso # (Auto) Nucleated RBC % (a uto) Nucleated RBCs # PT INR Specimen Type Arterial Sample Site Radial, right ABG pH 7.47 H (7.35-7.45) ABG pCO2 30.1 mmHg L mmHg (35-45) ABG pO2 69.1 mmHg L mmHg (80.0-100.0) ABG HCO3 22.0 mmol/L mmol/ L (22-26) ABG Base Excess -0.9 mmol/L mmol/ L (-2.0-2.0) Cash Test Pos Hematocrit 32.1 % L % (42-52) O2 Delivery Device Room air Med Surg Nurse ID [id number] Sodium Potassium Chloride Carbon Dioxide Anion Gap BUN Creatinine GFR Calculation Glucose Calculated Osmolal ity Lactate Calcium Total Bilirubin AST ALT Alkaline Phosphata se Ammonia 91 umol/L H umol/ L (16-60) Total Protein Albumin Globulin TSH Free T4 Urine Color Urine Appearance Urine pH Ur Specific Gravit y Urine Protein Urine Glucose (UA) Urine Ketones Urine Blood Urine Nitrate Urine Bilirubin Urine Urobilinogen Ur Leukocyte Clarissa ase Blood Type O Positive Rho(D) Type Positive Antibody Screen Negative EKG Data^: EKG 1: Attestation: I personally reviewed and interpreted this EKG as follows: EKG interpretation date: 09/30/21 EKG interpretation time: 21:35 Interpretation: Twelve-lead EKG shows a regular rhythm at a rate of 94. CO interval 157, QRS duration 96, QTc 421. Normal axis. Interpretation: Sinus rhythm. Mildly limited interpretation of lead III secondary to baseline wander. Computer generated interpretation: Chest X-Ray 09/30/21 21:07 IMPRESSION: No acute findings. Head CT 09/30/21 21:25 IMPRESSION: No acute intracranial findings. Discharge Plan Discharge Patient Disposition: Home Clinical Impression: Malaise and fatigue, Fall Condition: Stable Prescriptions: No Action spironolactone 25 mg Tablet 25 mg PO BID RF: 0 levothyroxine 112 mcg tablet 112 mcg PO DAILY RF: 0 lactulose 10 gram packet 10 g PO BEDTIME RF: 0 cyclobenzaprine 10 mg tablet 10 mg PO TID PRN (Reason: Muscle Spasm) RF: 0 sucralfate 100 mg/mL suspension See Rx Instructions .ROUTE .COMPLEX RF: 0 ondansetron HCl 4 mg tablet 4 mg PO TID PRN (Reason: Nausea And Vomiting) RF: 0 pantoprazole 40 mg tablet,delayed release (DR/EC) 40 mg PO BID RF: 0 calcium 250 mg Tablet 500 mg PO DAILY RF: 0 cholecalciferol (vitamin D3) [Vitamin D3] 25 mcg (1,000 unit) Capsule 25 mcg PO DAILY RF: 0 vitamin B complex-folic acid 1 tab PO DAILY RF: 0 Discharge Orders: Discharge ED (Routine); Ordered 10/01/21 Ordered By: Phylicia Armas Discharge Diet: Usual diet Discharge Activity: Resume usual activity Patient Instructions: Dehydration (ED) Activity Restrictions/Additional Instructions: Thank you for visiting the emergency department. You were seen and evaluated for generalized symptoms. The exact cause of your symptoms is unclear. You were found to have positive orthostatic vital signs which at times can be indicative of dehydration. Please follow-up with your primary care provider. Please return to the emergency department for worsening symptoms or anything else that you are concerned about and feel needs emergency department evaluation Coding Level of Care Code ED Head Of Business Development for Chg Fwd Documented by User: Phylicia Armas MD 10/01/21 00:09 HPI - General Adult General: Chief complaint: General Medical Stated complaint: BP low, Dizzy, sluggish, cant stay awake Time Seen by Provider: 09/30/21 21:15 [facility] ED PFSH: Medical History (Updated 10/13/21 @ 13:53 by Asad Duckworth DO) Alcohol abuse Alcoholic liver disease Esophageal varices determined by endoscopy GI bleed Hypothyroidism Liver cirrhosis Surgical History H/O esophagogastroduodenoscopy H/O gastric bypass Hx of shoulder surgery Status post colonoscopy Social History Smoking and tobacco status: never smoked Course Vital Signs: Vital signs: Vital Signs Temperature 97.9 F 09/30/21 21:10 Pulse Rate 78 10/01/21 00:32 Respiratory Rate 18 10/01/21 00:32 Blood Pressure 124/80 10/01/21 00:32 Pulse Oximetry 97 10/01/21 00:32 MDM - General Adult MDM Narrative: Medical decision making narrative: Patient presents here with some lethargy does have a history of cirrhosis ammonia is mildly elevated here with me some slight hepatic encephalopathy. He has no confusion here is able answer all my questions here appropriately. Patient given IV fluids we will start him on lactulose as well as to follow-up with his PCP in 2 to 4 days for repeat ammonia draw he is return if worsening patient and understand agree to plan. Lab Data: Labs: Lab Results 09/30/21 09/30/21 09/30/21 20:36 21:39 21:39 WBC 4.0 10^3/uL 10^3/ uL (4.0-10.0) RBC 3.84 10^6/uL L 10 ^6/uL (4.1-5.3) Hgb 11.9 g/dL g/dL (11.7-16.6) Hct 34.3 % L % (42.0-52.0) MCV 89.3 fl fl (80-94) MCH 31.0 pg pg (28.0-34.0) MCHC 34.7 g/dL g/dL (30.0-36.0) RDW 18.5 % H % (12.1-15.1) Plt Count 103 10^3/cmm L 10 ^3/cmm (130-400) MPV 10.1 fL fL (7.4-10.4) Neut % (Auto) 43.6 % % Lymph % (Auto) 38.4 % % [place] % (Auto) 15.1 % % Eos % (Auto) 1.5 % % Baso % (Auto) 1.2 % % Neut # (Auto) 1.76 10^3/uL L 10 ^3/uL (1.8-7.7) Lymph # (Auto) 1.6 10^3/uL 10^3/ uL (0.8-4.8) [place] # (Auto) 0.6 10^3/uL 10^3/ uL (0.2-0.9) Eos # (Auto) 0.1 10^3/uL 10^3/ uL (0.0-0.8) Baso # (Auto) 0.1 10^3/uL 10^3/ uL (0.0-0.1) Nucleated RBC % (a uto) 0 % % Nucleated RBCs # 0.0 /100WBC /100W BC PT 24.30 SECONDS H S ECONDS (12.1-14.9) INR 2.13 H (0.8-1.2) Specimen Type Sample Site ABG pH ABG pCO2 ABG pO2 ABG HCO3 ABG Base Excess Cash Test Hematocrit O2 Delivery Device Med Surg Nurse ID Sodium Potassium Chloride Carbon Dioxide Anion Gap BUN Creatinine GFR Calculation Glucose Calculated Osmolal ity Lactate Calcium Total Bilirubin AST ALT Alkaline Phosphata se Ammonia Total Protein Albumin Globulin TSH Free T4 Urine Color Dark yellow (Yellow) Urine Appearance Clear (CLEAR) Urine pH 5 (5-7) Ur Specific Gravit y 1.025 (1.005-1.030) Urine Protein Neg (Negative) Urine Glucose (UA) Norm (Normal) Urine Ketones Negative (Negative) Urine Blood Neg (Negative) Urine Nitrate Negative (Negative) Urine Bilirubin 1+ H (Negative) Urine Urobilinogen 4 mg/dL H mg/dL (Negative) Ur Leukocyte Clarissa ase Negative (Negative) Blood Type Rho(D) Type Antibody Screen 09/30/21 09/30/21 09/30/21 21:39 21:39 21:39 WBC RBC Hgb Hct MCV MCH MCHC RDW Plt Count MPV Neut % (Auto) Lymph % (Auto) [place] % (Auto) Eos % (Auto) Baso % (Auto) Neut # (Auto) Lymph # (Auto) [place] # (Auto) Eos # (Auto) Baso # (Auto) Nucleated RBC % (a uto) Nucleated RBCs # PT INR Specimen Type Sample Site ABG pH ABG pCO2 ABG pO2 ABG HCO3 ABG Base Excess Cash Test Hematocrit O2 Delivery Device Med Surg Nurse ID Sodium 136 mmol/L mmol/L (136-145) Potassium 3.5 mmol/L mmol/L (3.5-5.1) Chloride 106 mmol/L mmol/L (98-107) Carbon Dioxide 17 mmol/L L mmol/ L (22-29) Anion Gap 16.5 (5-19) BUN 9 mg/dL mg/dL (6-20) Creatinine 0.6 mg/dL L mg/dL (0.7-1.2) GFR Calculation 139.4 mL/min H mL /min (90-130) Glucose 76 mg/dL mg/dL (65-115) Calculated Osmolal ity 279 mOsm/kg L mOs m/kg (285-295) Lactate 1.9 mmol/L mmol/L (0.5-2.2) Calcium 7.5 mg/dL L mg/dL (8.5-10.5) Total Bilirubin 2.5 mg/dL H mg/dL (0.15-1.2) AST 36 U/L U/L (0-40) ALT 15 U/L U/L (0-41) Alkaline Phosphata se 65 IU/L IU/L (40-130) Ammonia Total Protein 8.2 g/dL g/dL (6.6-8.7) Albumin 2.4 g/dL L g/dL (3.5-5.2) Globulin 5.8 g/dL H g/dL (1.3-4.6) TSH 5.49 uIU/mL H uIU /mL (0.27-4.20) Free T4 1.79 ng/dL H ng/d L (0.82-1.77) Urine Color Urine Appearance Urine pH Ur Specific Gravit y Urine Protein Urine Glucose (UA) Urine Ketones Urine Blood Urine Nitrate Urine Bilirubin Urine Urobilinogen Ur Leukocyte Clarissa ase Blood Type Rho(D) Type Antibody Screen 09/30/21 09/30/21 09/30/21 22:22 22:30 22:53 WBC RBC Hgb Hct MCV MCH MCHC RDW Plt Count MPV Neut % (Auto) Lymph % (Auto) [place] % (Auto) Eos % (Auto) Baso % (Auto) Neut # (Auto) Lymph # (Auto) [place] # (Auto) Eos # (Auto) Baso # (Auto) Nucleated RBC % (a uto) Nucleated RBCs # PT INR Specimen Type Arterial Sample Site Radial, right ABG pH 7.47 H (7.35-7.45) ABG pCO2 30.1 mmHg L mmHg (35-45) ABG pO2 69.1 mmHg L mmHg (80.0-100.0) ABG HCO3 22.0 mmol/L mmol/ L (22-26) ABG Base Excess -0.9 mmol/L mmol/ L (-2.0-2.0) Cash Test Pos Hematocrit 32.1 % L % (42-52) O2 Delivery Device Room air Med Surg Nurse ID [id number] Sodium Potassium Chloride Carbon Dioxide Anion Gap BUN Creatinine GFR Calculation Glucose Calculated Osmolal ity Lactate Calcium Total Bilirubin AST ALT Alkaline Phosphata se Ammonia 91 umol/L H umol/ L (16-60) Total Protein Albumin Globulin TSH Free T4 Urine Color Urine Appearance Urine pH Ur Specific Gravit y Urine Protein Urine Glucose (UA) Urine Ketones Urine Blood Urine Nitrate Urine Bilirubin Urine Urobilinogen Ur Leukocyte Clarissa ase Blood Type O Positive Rho(D) Type Positive Antibody Screen Negative EKG Data^: EKG 1: Computer generated interpretation: Chest X-Ray 09/30/21 21:07 IMPRESSION: No acute findings. Head CT 09/30/21 21:25 IMPRESSION: No acute intracranial findings. Discharge Plan Discharge Patient Disposition: Home Clinical Impression: Malaise and fatigue, Fall Condition: Stable Prescriptions: No Action spironolactone 25 mg Tablet 25 mg PO BID RF: 0 levothyroxine 112 mcg tablet 112 mcg PO DAILY RF: 0 lactulose 10 gram packet 10 g PO BEDTIME RF: 0 cyclobenzaprine 10 mg tablet 10 mg PO TID PRN (Reason: Muscle Spasm) RF: 0 sucralfate 100 mg/mL suspension See Rx Instructions .ROUTE .COMPLEX RF: 0 ondansetron HCl 4 mg tablet 4 mg PO TID PRN (Reason: Nausea And Vomiting) RF: 0 pantoprazole 40 mg tablet,delayed release (DR/EC) 40 mg PO BID RF: 0 calcium 250 mg Tablet 500 mg PO DAILY RF: 0 cholecalciferol (vitamin D3) [Vitamin D3] 25 mcg (1,000 unit) Capsule 25 mcg PO DAILY RF: 0 vitamin B complex-folic acid 1 tab PO DAILY RF: 0 Discharge Orders: Discharge ED (Routine); Ordered 10/01/21 Ordered By: Phylicia Armas Discharge Diet: Usual diet Discharge Activity: Resume usual activity Patient Instructions: Dehydration (ED) Activity Restrictions/Additional Instructions: Thank you for visiting the emergency department. You were seen and evaluated for generalized symptoms. The exact cause of your symptoms is unclear. You were found to have positive orthostatic vital signs which at times can be indicative of dehydration. Please follow-up with your primary care provider. Please return to the emergency department for worsening symptoms or anything else that you are concerned about and feel needs emergency department evaluation Coding Level of Care Code ED Head Of Business Development for Naz Goldsmith
--- NOTE | 2021-09-30 21:25 | CTR_ITS ---
PROCEDURE INFORMATION: Exam: CT Head Without Contrast Exam date and time: 09/30/2021 9:25 PM Age: 55 years old Clinical indication: Altered mental status/memory loss; Additional info: AMS, fall TECHNIQUE: Imaging protocol: Computed tomography of the head without contrast. Radiation optimization: All CT scans at this facility use at least one of these dose optimization techniques: automated exposure control; mA and/or kV adjustment per patient size (includes targeted exams where dose is matched to clinical indication); or iterative reconstruction. COMPARISON: No relevant prior studies available. RADIATION DOSE METRICS: Total DLP (mGy-cm): 871.05 FINDINGS: Brain: Normal. No hemorrhage. Unremarkable white matter. No mass effect. Cerebral ventricles: No ventriculomegaly. Paranasal sinuses: Visualized sinuses are unremarkable. No fluid levels. Mastoid air cells: Visualized mastoid air cells are well aerated. Vasculature: Severe calcified intracranial atherosclerotic vessel disease. Bones/joints: Unremarkable. No acute fracture. Soft tissues: Unremarkable. CT/CT head wo con* [id number] IMPRESSION: No acute intracranial findings.
[2021-09-30 21:29] VITALS: BP 124/84; PULSE 94; RESP 17; O2SAT 95
[2021-09-30 21:48] LABS: Basophils # 0.1 10^3/uL (0.0-0.1); Basophils % 1.2 %; Eosinophils # 0.1 10^3/uL (0.0-0.8); Eosinophils % 1.5 %; Hematocrit 34.3 % (42.0-52.0); Hemoglobin 11.9 g/dL (11.7-16.6); Lymphocytes # 1.6 10^3/uL (0.8-4.8); Lymphocytes % 38.4 %; Mean Corpuscular HGB Conc 34.7 g/dL (30.0-36.0); Mean Corpuscular Volume 89.3 fl (80-94); Mean Platelet Volume 10.1 fL (7.4-10.4); Monocytes # 0.6 10^3/uL (0.2-0.9); Monocytes % 15.1 %; Neutrophils # 1.76 10^3/uL (1.8-7.7); Neutrophils % 43.6 %; Nucleated Red Blood Cells % 0 %; Platelet Count 103 10^3/cmm (130-400); Red Blood Count 3.84 10^6/uL (4.1-5.3); Red Cell Distribution Width 18.5 % (12.1-15.1)
[2021-09-30 22:00] LABS: INR 2.13 (0.8-1.2)
[2021-09-30 22:05] LABS: Lactate (Lactic Acid level) 1.9 mmol/L (0.5-2.2)
[2021-09-30 22:14] LABS: Alanine Aminotransferase 15 U/L (0-41); Albumin Level 2.4 g/dL (3.5-5.2); Alkaline Phosphatase 65 IU/L (40-130); Anion Gap 16.5 (5-19); Aspartate Amino Transferase 36 U/L (0-40); Blood Urea Nitrogen 9 mg/dL (6-20); Calcium 7.5 mg/dL (8.5-10.5); Carbon Dioxide 17 mmol/L (22-29); Chloride 106 mmol/L (98-107); Globulin 5.8 g/dL (1.3-4.6); Glomerular Filtration Rate 139.4 mL/min (90-130); Glucose 76 mg/dL (65-115); Osmolality Calculated 279 mOsm/kg (285-295); Potassium 3.5 mmol/L (3.5-5.1); Sodium 136 mmol/L (136-145); Thyroid Stimulating Hormone 5.49 uIU/mL (0.27-4.20); Total Bilirubin 2.5 mg/dL (0.15-1.2); Total Protein 8.2 g/dL (6.6-8.7)
--- NOTE | 2021-09-30 22:20 | PC.NURSE ---
55 yo male presents with c/o increased sleeping for several days. has h/o liver disease and esophageal verices with recent hemorrhage. denies fever, cough, chills, headache, urinary or bowel difficulty.
[2021-09-30 22:23] VITALS: BP 110/74; BP 110/83; BP 115/76; PULSE 106; PULSE 90; PULSE 97
[2021-09-30] MEDS: sodium chloride 0.9% 1,000 ML 999 ML IV (22:34)
[2021-09-30 22:37] LABS: Add Urine Microscopic? NO; Charge for UA Resulting for Rev
[2021-09-30 22:45] LABS: Urine Color Dark Yellow (Yellow)
[2021-09-30 22:46] LABS: Bilirubin Urine 1+ (Negative); Blood Urine Neg (Negative); Glucose Urine UA Norm (Normal); Ketones Urine Negative (Negative); Leukocyte Esterase Urine Negative (Negative); Nitrate Urine Negative (Negative); Protein Urine Neg (Negative); Specific Gravity, Urine 1.025 (1.005-1.030); Urine Appearance Clear (CLEAR); Urobilinogen Urine 4 mg/dL (Negative); pH Urine 5 (5-7)
[2021-09-30 22:49] LABS: Free T4 Free Thyroxine 1.79 ng/dL (0.82-1.77)
[2021-09-30 23:25] LABS: Ammonia 91 umol/L (16-60)
[2021-09-30 23:26] LABS: ABG PCO2 30.1 mmHg (35-45); ABG PH Result 7.47 (7.35-7.45); Arterial Blood Gas Hematocrit 32.1 % (42-52); Base Excess ABG -0.9 mmol/L (-2.0-2.0); Blood Gas Allen Test Pos; Blood Gas Sample Site Radial, right; Blood Gas Sample Type Arterial; Oxygen Device ROOM AIR; PO2 ABG 69.1 mmHg (80.0-100.0)
[2021-09-30 23:54] VITALS: BP 122/79; BP 128/71; BP 131/80; PULSE 83; PULSE 89; PULSE 95
[2021-10-01] MEDS: lactulose oral liq 20 gm/30 mL UDC PO (00:27)
[2021-10-01 00:32] VITALS: BP 124/80; PULSE 78; RESP 18; O2SAT 97
== END 2021-10-01 00:30 | disposition home or self-care (01) ==
PROVIDERS: Emergency Medicine; Emergency Provider Emergency Medicine
DX: R53.81 Other malaise (principal); R53.83 Other fatigue
CPT/HCPCS: 36600; 70450; 71045; 80053; 81003; 82140; 82803; 83605; 84439; 84443; 85025; 85610; 86850; 86900; 87040; 87077; 87186; 87205; 93005; 96360; 99284; J7030

== ENCOUNTER 2021-10-12 08:39 | Observation (INO) | payer BC, SELFPAY ==
[2021-10-12] VITALS (10 sets, daily range): BP systolic 111–139; BP diastolic 69–89; PULSE 80–90; RESP 16–18; TEMP 36.7; O2SAT 97–100; BMI 30.4
--- NOTE | 2021-10-12 10:30 | ECG_ITS ---
[facility] Test Date: 2021-10-12 Pat Name: Olu Clemens Department: Room: Gender: Male Associate Director Of Nursing: : 1965 Requested By: Asad Storey Order Number: [id number] Efrain MD: Roxana Rubio M.D. Measurements Intervals [place] Rate: 82 P: 19 UT: 161 QRS: 15 QRSD: 94 T: 65 QT: 387 QTc: 452 Interpretive Statements SINUS RHYTHM LOW QRS VOLTAGE IN PRECORDIAL LEADS [QRS DEFLECTION < 1.0 mV IN CHEST LEADS] NONSPECIFIC ST & T-WAVE ABNORMALITY Compared to ECG 09/30/2021 21:34:30 Possible ischemia no longer present T-wave abnormality still present Electronically Signed On 10-12-2021 15:24:15 PHARMACEUTICAL ASSISTANT by Roxana Rubio M.D. [id number]
--- NOTE | 2021-10-12 10:30 | CT_ITS ---
WS: [id number] CT ABDOMEN PELVIS TECHNIQUE: Contrast-enhanced CT of the abdomen and pelvis with coronal and sagittal reformatted image s. CLINICAL INFORMATION: abd pain COMPARISON: None. DLP: 1787.[address] scans at [facility] use at least one of these dose optimization techniques: automated e xposure control; mA and/or kV adjustment per patient size (includes targeted exams where dose is matc hed to clinical indication); or iterative reconstruction. FINDINGS:Previously described colitis appears improved. Mild thickening and induration involving the transverse colon and left descending colon left lower quadrant which is decompressed. No other signif icant changes compared to previous. Small right greater than left pleural effusions similar to previous. Hepatomegaly with diffuse fatty infiltration of the liver. Heterogeneous cirrhotic appearance to the liver. Fluid in the Gallbladder fossa likely related to hepatic disease. Perihepatic and perisplenic ascites. Upper abdominal and par aesophageal varices suggesting portal hypertension. Prior gastric bypass with gastric pouch. Small esophageal hiatal hernia. Adrenal glands are normal. N ormal renal parenchymal enhancement. No hydronephrosis. Small renal cysts. Some are too small to nasrin acterize. Fatty atrophy of the pancreas. Reactive lymph nodes in the fabiano hepatis unchanged. Normal caliber abdominal aorta. Small amount of perihepatic and perisplenic ascites similar to previo us. Small volume pelvic ascites unchanged. Normal sigmoid colon. A few diverticuli. No evidence of ac [place] diverticulitis. CT/CT abdomen pelvis w con* [id number] IMPRESSION: 1. Prior gastric bypass with gastric pouch. Small esophageal hernia. 2. Cirrhotic contour to the liver with hepatomegaly and heterogeneous enhancem ent unchanged. Evidence of portal hypertension. 3. Small right greater than left pleural effusions unchanged. 4. Small amount of ascites in the pelvis. 5. Sigmoid diverticulosis. No evidence of acute diverticulitis. 6. Previously described mild colitis appears nearly resolved compared to previ ous with mild residual thickening and induration involving the transverse colon and left descending colon.
[2021-10-12 10:44] LABS: Basophils # 0.1 10^3/uL (0.0-0.1); Basophils % 1.2 %; Eosinophils # 0.1 10^3/uL (0.0-0.8); Eosinophils % 1.6 %; Hematocrit 27.2 % (42.0-52.0); Hemoglobin 9.5 g/dL (11.7-16.6); Lymphocytes % 40.8 %; Mean Corpuscular HGB Conc 34.9 g/dL (30.0-36.0); Mean Corpuscular Hemoglobin 31.3 pg (28.0-34.0); Mean Corpuscular Volume 89.5 fl (80-94); Mean Platelet Volume 9.7 fL (7.4-10.4); Monocytes # 0.8 10^3/uL (0.2-0.9); Monocytes % 15.5 %; Neutrophils # 2.02 10^3/uL (1.8-7.7); Neutrophils % 40.5 %; Nucleated Red Blood Cells % 0 %; Platelet Count 120 10^3/cmm (130-400); Red Blood Count 3.04 10^6/uL (4.1-5.3); Red Cell Distribution Width 19.8 % (12.1-15.1)
--- NOTE | 2021-10-12 10:50 | W.ED.GENADLT ---
Documented by User: Asad Duckworth DO 10/13/21 13:53 HPI - General Adult General: Chief complaint: General Medical Stated complaint: GI BLEED EPISODE, RECENT HX Time Seen by Provider: 10/12/21 10:05 History of Present Illness: HPI narrative: 55-year-old male presents emergency room via private vehicle with complaints of black tarry stools. Has had this for the last couple of days. He has had this in the past as well he states he has esophageal varices he has had evaluation he has been treated for bleeding from the same in the past however does not sound like he ever had any banding done. He is awake and alert. He denies any chest pain he is not had any hematemesis. He has noticed significant discoloration of the toilet water with bowel movements. No abdominal pain no dysuria urgency or frequency. Esophageal varices thought to have been a result of his previous gastric bypass. Onset (ago): day(s) Relieving factors: none Exacerbating factors: none Associated symptoms: Reports decreased appetite and malaise; Deny chest pain, confusion, cough, diaphoresis, dyspnea, fevers/chills, headache(s), nausea, rash, palpitations, seizures, short of breath, syncope, vomiting or weakness Treatments prior to arrival: none Review of Systems Const: Reports: malaise; Denies: diaphoresis ENMT: Denies: throat pain, ear or mastoid pain, nasal discharge or nasal congestion Card: Denies: chest pain, palpitations or syncope Resp: Denies: dyspnea GI: Denies: nausea or vomiting : Denies: flank pain, dysuria, urinary frequency or urinary urgency Skin/Breast: Denies: rash Neuro: Denies: headache(s) or confusion PFS ED PFSH: Medical History (Updated 10/13/21 @ 13:53 by Asad Duckworth DO) Alcohol abuse Alcoholic liver disease Esophageal varices determined by endoscopy GI bleed Hypothyroidism Liver cirrhosis Surgical History H/O esophagogastroduodenoscopy H/O gastric bypass Hx of shoulder surgery Status post colonoscopy Social History Smoking and tobacco status: never smoked Physical Exam Const: COMMON NORMALS: no acute distress GENERAL APPEARANCE: cooperative and comfortable ORIENTATION/CONSCIOUSNESS: Yes awake, Yes oriented to person, Yes oriented to place and Yes oriented to time HENMT: COMMON NORMALS: normocephalic, atraumatic and hearing grossly normal bilaterally HEAD & SCALP: normocephalic and atraumatic Neck/C-Spine: COMMON NORMALS: no JVD Resp: COMMON NORMALS: normal respiratory effort, No retractions, No use of accessory muscles and clear to auscultation bilaterally AUSCULTATION: clear to auscultation bilaterally Cardio: COMMON NORMALS: no JVD, regular rate, regular rhythm and No murmurs present (Cardio) RATE: regular rate RHYTHM: regular rhythm GI: COMMON NORMALS: Soft to palpation and No hepatosplenomegaly present AUSCULTATION: Yes normoactive bowel sounds PALPATION: Yes Soft to palpation, No Tenderness to palpation present (GI), No Guarding due to palpation present (GI) and Yes No hepatosplenomegaly present RECTAL EXAM: Yes normal sphincter tone and Yes Abnormal stool present Abnormal stool details: black stool and maroon stool Extremity: COMMON NORMALS: normal to inspection, capillary refill normal, no clubbing, cyanosis or edema, no calf tenderness and no pedal edema Neuro: SENSORIUM/ORIENTATION: Yes oriented to person, Yes oriented to place and Yes oriented to time Skin: COMMON NORMALS: no rashes or lesions noted GENERAL SKIN EXAM: no rashes or lesions noted Course Vital Signs: Vital signs: Vital Signs Temperature 97.4 F L 10/13/21 09:59 Pulse Rate 61 10/13/21 13:15 Respiratory Rate 12 10/13/21 09:59 Blood Pressure 133/86 10/13/21 13:15 Pulse Oximetry 98 10/13/21 13:15 MDM - General Adult MDM Narrative: Medical decision making narrative: October 13, 2021 6:21 AM patient monitored overnight. We are making attempts to transfer him. Discussed with hospitalist and was general surgery does not feel comfortable managing here because of his history of esophageal varices. Repeat hemoglobin is shows that his hemoglobin dropped another point and then seems to have stabilized. Is not having active bleeding at this time. Kept him n.p.o. We still do not have any potential for transfer we have called several dozen facilities. Will make more contact this morning to see transfer will consult general surgery and hospitalist for assistance with management will transfer is pending. Dr. Banegas is done the EGD esophageal varices are minimal he signs no sign of bleeding this obscure the stomach. Discussed Dr. Bonilla work and admit the patient here monitor probably at least 24 more hours for stabilization of hemoglobin. Orders written Lab Data: Labs: Lab Results 10/12/21 10/12/21 10/12/21 10:26 10:26 10:42 WBC 5.0 10^3/uL 10^3/ uL (4.0-10.0) RBC 3.04 10^6/uL L 10 ^6/uL (4.1-5.3) Hgb 9.5 g/dL L g/dL (11.7-16.6) Hct 27.2 % L % (42.0-52.0) MCV 89.5 fl fl (80-94) MCH 31.3 pg pg (28.0-34.0) MCHC 34.9 g/dL g/dL (30.0-36.0) RDW 19.8 % H % (12.1-15.1) Plt Count 120 10^3/cmm L 10 ^3/cmm (130-400) MPV 9.7 fL fL (7.4-10.4) Neut % (Auto) 40.5 % % Lymph % (Auto) 40.8 % % [place] % (Auto) 15.5 % % Eos % (Auto) 1.6 % % Baso % (Auto) 1.2 % % Neut # (Auto) 2.02 10^3/uL 10^3 /uL (1.8-7.7) Lymph # (Auto) 2.0 10^3/uL 10^3/ uL (0.8-4.8) [place] # (Auto) 0.8 10^3/uL 10^3/ uL (0.2-0.9) Eos # (Auto) 0.1 10^3/uL 10^3/ uL (0.0-0.8) Baso # (Auto) 0.1 10^3/uL 10^3/ uL (0.0-0.1) Nucleated RBC % (a uto) 0 % % Nucleated RBCs # 0.0 /100WBC /100W BC PT 26.40 SECONDS H S ECONDS (12.1-14.9) INR 2.37 H (0.8-1.2) APTT 45.2 SECONDS H SE CONDS (23.9-36.7) Sodium 141 mmol/L mmol/L (136-145) Potassium 3.5 mmol/L mmol/L (3.5-5.1) Chloride 110 mmol/L H mmol /L (98-107) Carbon Dioxide 18 mmol/L L mmol/ L (22-29) Anion Gap 16.5 (5-19) BUN 12 mg/dL mg/dL (6-20) Creatinine 0.6 mg/dL L mg/dL (0.7-1.2) GFR Calculation 139.4 mL/min H mL /min (90-130) Glucose 100 mg/dL mg/dL (65-115) Calculated Osmolal ity 292 mOsm/kg mOsm/ kg (285-295) Calcium 7.7 mg/dL L mg/dL (8.5-10.5) Iron TIBC % Saturation Unsat Iron Binding Total Bilirubin 2.4 mg/dL H mg/dL (0.15-1.2) AST 36 U/L U/L (0-40) ALT 16 U/L U/L (0-41) Alkaline Phosphata se 81 IU/L IU/L (40-130) Total Protein 7.7 g/dL g/dL (6.6-8.7) Albumin 2.3 g/dL L g/dL (3.5-5.2) Globulin 5.4 g/dL H g/dL (1.3-4.6) TSH Urine Color Urine Appearance Urine pH Ur Specific Gravit y Urine Protein Urine Glucose (UA) Urine Ketones Urine Blood Urine Nitrate Urine Bilirubin Urine Urobilinogen Ur Leukocyte Clarissa ase SARS-CoV-2 Ag (Rap id) Blood Type Rho(D) Type Antibody Screen 10/12/21 10/12/21 10/12/21 10:48 13:24 16:55 WBC RBC Hgb Hct MCV MCH MCHC RDW Plt Count MPV Neut % (Auto) Lymph % (Auto) [place] % (Auto) Eos % (Auto) Baso % (Auto) Neut # (Auto) Lymph # (Auto) [place] # (Auto) Eos # (Auto) Baso # (Auto) Nucleated RBC % (a uto) Nucleated RBCs # PT INR APTT Sodium Potassium Chloride Carbon Dioxide Anion Gap BUN Creatinine GFR Calculation Glucose Calculated Osmolal ity Calcium Iron TIBC % Saturation Unsat Iron Binding Total Bilirubin AST ALT Alkaline Phosphata se Total Protein Albumin Globulin TSH Urine Color Yellow (Yellow) Urine Appearance Clear (CLEAR) Urine pH 5 (5-7) Ur Specific Gravit y 1.020 (1.005-1.030) Urine Protein Neg (Negative) Urine Glucose (UA) Norm (Normal) Urine Ketones Negative (Negative) Urine Blood Neg (Negative) Urine Nitrate Negative (Negative) Urine Bilirubin 1+ H (Negative) Urine Urobilinogen 1 mg/dL H mg/dL (Negative) Ur Leukocyte Clarissa ase Negative (Negative) SARS-CoV-2 Ag (Rap id) Negative (Negative) Blood Type O Positive Rho(D) Type Positive Antibody Screen Negative 10/12/21 10/12/21 10/13/21 20:55 21:51 01:59 WBC 4.1 10^3/uL 10^3/ uL (4.0-10.0) RBC 2.62 10^6/uL L 10 ^6/uL (4.1-5.3) Hgb 8.3 g/dL L g/dL 8.4 g/dL L g/dL (11.7-16.6) (11.7-16.6) Hct 23.0 % L % 24.1 % L % (42.0-52.0) (42.0-52.0) MCV 87.8 fl fl (80-94) MCH 31.7 pg pg (28.0-34.0) MCHC 36.1 g/dL H g/dL (30.0-36.0) RDW 23.1 % H % (12.1-15.1) Plt Count 168 10^3/cmm D 1 0^3/cmm (130-400) MPV Not Reportable Neut % (Auto) 32.6 % % Lymph % (Auto) 51.9 % % [place] % (Auto) 12.6 % % Eos % (Auto) 1.5 % % Baso % (Auto) 1.2 % % Neut # (Auto) 1.32 10^3/uL L 10 ^3/uL (1.8-7.7) Lymph # (Auto) 2.1 10^3/uL 10^3/ uL (0.8-4.8) [place] # (Auto) 0.5 10^3/uL 10^3/ uL (0.2-0.9) Eos # (Auto) 0.1 10^3/uL 10^3/ uL (0.0-0.8) Baso # (Auto) 0.1 10^3/uL 10^3/ uL (0.0-0.1) Nucleated RBC % (a uto) 0 % % Nucleated RBCs # 0.0 /100WBC /100W BC PT INR APTT Sodium 141 mmol/L mmol/L (136-145) Potassium 3.7 mmol/L mmol/L (3.5-5.1) Chloride 110 mmol/L H mmol /L (98-107) Carbon Dioxide 19 mmol/L L mmol/ L (22-29) Anion Gap 15.7 (5-19) BUN 10 mg/dL mg/dL (6-20) Creatinine 0.6 mg/dL L mg/dL (0.7-1.2) GFR Calculation 139.4 mL/min H mL /min (90-130) Glucose 81 mg/dL mg/dL (65-115) Calculated Osmolal ity 290 mOsm/kg mOsm/ kg (285-295) Calcium 8.0 mg/dL L mg/dL (8.5-10.5) Iron TIBC % Saturation Unsat Iron Binding Total Bilirubin 2.7 mg/dL H mg/dL (0.15-1.2) AST 33 U/L U/L (0-40) ALT 15 U/L U/L (0-41) Alkaline Phosphata se 67 IU/L IU/L (40-130) Total Protein 7.8 g/dL g/dL (6.6-8.7) Albumin 2.5 g/dL L g/dL (3.5-5.2) Globulin 5.3 g/dL H g/dL (1.3-4.6) TSH Urine Color Urine Appearance Urine pH Ur Specific Gravit y Urine Protein Urine Glucose (UA) Urine Ketones Urine Blood Urine Nitrate Urine Bilirubin Urine Urobilinogen Ur Leukocyte Clarissa ase SARS-CoV-2 Ag (Rap id) Blood Type Rho(D) Type Antibody Screen 10/13/21 10/13/21 10/13/21 10:34 10:34 10:34 WBC 3.4 10^3/uL L 10^ 3/uL (4.0-10.0) RBC 2.78 10^6/uL L 10 ^6/uL (4.1-5.3) Hgb 8.7 g/dL L g/dL (11.7-16.6) Hct 25.4 % L % (42.0-52.0) MCV 91.4 fl fl (80-94) MCH 31.3 pg pg (28.0-34.0) MCHC 34.3 g/dL g/dL (30.0-36.0) RDW 20.3 % H % (12.1-15.1) Plt Count 119 10^3/cmm L 10 ^3/cmm (130-400) MPV 9.9 fL fL (7.4-10.4) Neut % (Auto) 28.7 % % Lymph % (Auto) 54.7 % % [place] % (Auto) 12.1 % % Eos % (Auto) 2.4 % % Baso % (Auto) 1.8 % % Neut # (Auto) 0.97 10^3/uL L* 1 0^3/uL (1.8-7.7) Lymph # (Auto) 1.9 10^3/uL 10^3/ uL (0.8-4.8) [place] # (Auto) 0.4 10^3/uL 10^3/ uL (0.2-0.9) Eos # (Auto) 0.1 10^3/uL 10^3/ uL (0.0-0.8) Baso # (Auto) 0.1 10^3/uL 10^3/ uL (0.0-0.1) Nucleated RBC % (a uto) 0 % % Nucleated RBCs # 0.0 /100WBC /100W BC PT 25.20 SECONDS H S ECONDS (12.1-14.9) INR 2.24 H (0.8-1.2) APTT 45.4 SECONDS H SE CONDS (23.9-36.7) Sodium 141 mmol/L mmol/L (136-145) Potassium 3.9 mmol/L mmol/L (3.5-5.1) Chloride 112 mmol/L H mmol /L (98-107) Carbon Dioxide 19 mmol/L L mmol/ L (22-29) Anion Gap 13.9 (5-19) BUN 9 mg/dL mg/dL (6-20) Creatinine 0.6 mg/dL L mg/dL (0.7-1.2) GFR Calculation 139.4 mL/min H mL /min (90-130) Glucose 83 mg/dL mg/dL (65-115) Calculated Osmolal ity 290 mOsm/kg mOsm/ kg (285-295) Calcium 7.8 mg/dL L mg/dL (8.5-10.5) Iron TIBC % Saturation Unsat Iron Binding Total Bilirubin 2.8 mg/dL H mg/dL (0.15-1.2) AST 29 U/L U/L (0-40) ALT 15 U/L U/L (0-41) Alkaline Phosphata se 67 IU/L IU/L (40-130) Total Protein 7.2 g/dL g/dL (6.6-8.7) Albumin 2.2 g/dL L g/dL (3.5-5.2) Globulin 5.0 g/dL H g/dL (1.3-4.6) TSH Urine Color Urine Appearance Urine pH Ur Specific Gravit y Urine Protein Urine Glucose (UA) Urine Ketones Urine Blood Urine Nitrate Urine Bilirubin Urine Urobilinogen Ur Leukocyte Clarissa ase SARS-CoV-2 Ag (Rap id) Blood Type Rho(D) Type Antibody Screen 10/13/21 10:34 WBC RBC Hgb Hct MCV MCH MCHC RDW Plt Count MPV Neut % (Auto) Lymph % (Auto) [place] % (Auto) Eos % (Auto) Baso % (Auto) Neut # (Auto) Lymph # (Auto) [place] # (Auto) Eos # (Auto) Baso # (Auto) Nucleated RBC % (a uto) Nucleated RBCs # PT INR APTT Sodium Potassium Chloride Carbon Dioxide Anion Gap BUN Creatinine GFR Calculation Glucose Calculated Osmolal ity Calcium Iron 50 ug/dL L ug/dL (59-158) TIBC 188 mcg/dl mcg/dl % Saturation 26.5 % % (20-50) Unsat Iron Binding 138 ug/dL ug/dL (112-347) Total Bilirubin AST ALT Alkaline Phosphata se Total Protein Albumin Globulin TSH 4.42 uIU/mL H uIU /mL (0.27-4.20) Urine Color Urine Appearance Urine pH Ur Specific Gravit y Urine Protein Urine Glucose (UA) Urine Ketones Urine Blood Urine Nitrate Urine Bilirubin Urine Urobilinogen Ur Leukocyte Clarissa ase SARS-CoV-2 Ag (Rap id) Blood Type Rho(D) Type Antibody Screen Discharge Plan Discharge Patient Disposition: Placed in Observation Clinical Impression: GI bleed, Liver cirrhosis, Esophageal varices determined by endoscopy Coding Level of Care Code ED Digester Operator for Chg Fwd Exam Comprehensive Documented by User: Phylicia Armas MD 10/12/21 19:14 HPI - General Adult General: Chief complaint: General Medical Stated complaint: GI BLEED EPISODE, RECENT HX Time Seen by Provider: 10/12/21 10:05 PFSH ED PFSH: Medical History (Updated 10/13/21 @ 13:53 by Asad Duckworth DO) Alcohol abuse Alcoholic liver disease Esophageal varices determined by endoscopy GI bleed Hypothyroidism Liver cirrhosis Surgical History H/O esophagogastroduodenoscopy H/O gastric bypass Hx of shoulder surgery Status post colonoscopy Social History Smoking and tobacco status: never smoked Course Vital Signs: Vital signs: Vital Signs Temperature 97.4 F L 10/13/21 09:59 Pulse Rate 61 10/13/21 13:15 Respiratory Rate 12 10/13/21 09:59 Blood Pressure 133/86 10/13/21 13:15 Pulse Oximetry 98 10/13/21 13:15 MDM - General Adult Lab Data: Labs: Lab Results 10/12/21 10/12/21 10/12/21 10:26 10:26 10:42 WBC 5.0 10^3/uL 10^3/ uL (4.0-10.0) RBC 3.04 10^6/uL L 10 ^6/uL (4.1-5.3) Hgb 9.5 g/dL L g/dL (11.7-16.6) Hct 27.2 % L % (42.0-52.0) MCV 89.5 fl fl (80-94) MCH 31.3 pg pg (28.0-34.0) MCHC 34.9 g/dL g/dL (30.0-36.0) RDW 19.8 % H % (12.1-15.1) Plt Count 120 10^3/cmm L 10 ^3/cmm (130-400) MPV 9.7 fL fL (7.4-10.4) Neut % (Auto) 40.5 % % Lymph % (Auto) 40.8 % % [place] % (Auto) 15.5 % % Eos % (Auto) 1.6 % % Baso % (Auto) 1.2 % % Neut # (Auto) 2.02 10^3/uL 10^3 /uL (1.8-7.7) Lymph # (Auto) 2.0 10^3/uL 10^3/ uL (0.8-4.8) [place] # (Auto) 0.8 10^3/uL 10^3/ uL (0.2-0.9) Eos # (Auto) 0.1 10^3/uL 10^3/ uL (0.0-0.8) Baso # (Auto) 0.1 10^3/uL 10^3/ uL (0.0-0.1) Nucleated RBC % (a uto) 0 % % Nucleated RBCs # 0.0 /100WBC /100W BC PT 26.40 SECONDS H S ECONDS (12.1-14.9) INR 2.37 H (0.8-1.2) APTT 45.2 SECONDS H SE CONDS (23.9-36.7) Sodium 141 mmol/L mmol/L (136-145) Potassium 3.5 mmol/L mmol/L (3.5-5.1) Chloride 110 mmol/L H mmol /L (98-107) Carbon Dioxide 18 mmol/L L mmol/ L (22-29) Anion Gap 16.5 (5-19) BUN 12 mg/dL mg/dL (6-20) Creatinine 0.6 mg/dL L mg/dL (0.7-1.2) GFR Calculation 139.4 mL/min H mL /min (90-130) Glucose 100 mg/dL mg/dL (65-115) Calculated Osmolal ity 292 mOsm/kg mOsm/ kg (285-295) Calcium 7.7 mg/dL L mg/dL (8.5-10.5) Iron TIBC % Saturation Unsat Iron Binding Total Bilirubin 2.4 mg/dL H mg/dL (0.15-1.2) AST 36 U/L U/L (0-40) ALT 16 U/L U/L (0-41) Alkaline Phosphata se 81 IU/L IU/L (40-130) Total Protein 7.7 g/dL g/dL (6.6-8.7) Albumin 2.3 g/dL L g/dL (3.5-5.2) Globulin 5.4 g/dL H g/dL (1.3-4.6) TSH Urine Color Urine Appearance Urine pH Ur Specific Gravit y Urine Protein Urine Glucose (UA) Urine Ketones Urine Blood Urine Nitrate Urine Bilirubin Urine Urobilinogen Ur Leukocyte Clarissa ase SARS-CoV-2 Ag (Rap id) Blood Type Rho(D) Type Antibody Screen 10/12/21 10/12/21 10/12/21 10:48 13:24 16:55 WBC RBC Hgb Hct MCV MCH MCHC RDW Plt Count MPV Neut % (Auto) Lymph % (Auto) [place] % (Auto) Eos % (Auto) Baso % (Auto) Neut # (Auto) Lymph # (Auto) [place] # (Auto) Eos # (Auto) Baso # (Auto) Nucleated RBC % (a uto) Nucleated RBCs # PT INR APTT Sodium Potassium Chloride Carbon Dioxide Anion Gap BUN Creatinine GFR Calculation Glucose Calculated Osmolal ity Calcium Iron TIBC % Saturation Unsat Iron Binding Total Bilirubin AST ALT Alkaline Phosphata se Total Protein Albumin Globulin TSH Urine Color Yellow (Yellow) Urine Appearance Clear (CLEAR) Urine pH 5 (5-7) Ur Specific Gravit y 1.020 (1.005-1.030) Urine Protein Neg (Negative) Urine Glucose (UA) Norm (Normal) Urine Ketones Negative (Negative) Urine Blood Neg (Negative) Urine Nitrate Negative (Negative) Urine Bilirubin 1+ H (Negative) Urine Urobilinogen 1 mg/dL H mg/dL (Negative) Ur Leukocyte Clarissa ase Negative (Negative) SARS-CoV-2 Ag (Rap id) Negative (Negative) Blood Type O Positive Rho(D) Type Positive Antibody Screen Negative 10/12/21 10/12/21 10/13/21 20:55 21:51 01:59 WBC 4.1 10^3/uL 10^3/ uL (4.0-10.0) RBC 2.62 10^6/uL L 10 ^6/uL (4.1-5.3) Hgb 8.3 g/dL L g/dL 8.4 g/dL L g/dL (11.7-16.6) (11.7-16.6) Hct 23.0 % L % 24.1 % L % (42.0-52.0) (42.0-52.0) MCV 87.8 fl fl (80-94) MCH 31.7 pg pg (28.0-34.0) MCHC 36.1 g/dL H g/dL (30.0-36.0) RDW 23.1 % H % (12.1-15.1) Plt Count 168 10^3/cmm D 1 0^3/cmm (130-400) MPV Not Reportable Neut % (Auto) 32.6 % % Lymph % (Auto) 51.9 % % [place] % (Auto) 12.6 % % Eos % (Auto) 1.5 % % Baso % (Auto) 1.2 % % Neut # (Auto) 1.32 10^3/uL L 10 ^3/uL (1.8-7.7) Lymph # (Auto) 2.1 10^3/uL 10^3/ uL (0.8-4.8) [place] # (Auto) 0.5 10^3/uL 10^3/ uL (0.2-0.9) Eos # (Auto) 0.1 10^3/uL 10^3/ uL (0.0-0.8) Baso # (Auto) 0.1 10^3/uL 10^3/ uL (0.0-0.1) Nucleated RBC % (a uto) 0 % % Nucleated RBCs # 0.0 /100WBC /100W BC PT INR APTT Sodium 141 mmol/L mmol/L (136-145) Potassium 3.7 mmol/L mmol/L (3.5-5.1) Chloride 110 mmol/L H mmol /L (98-107) Carbon Dioxide 19 mmol/L L mmol/ L (22-29) Anion Gap 15.7 (5-19) BUN 10 mg/dL mg/dL (6-20) Creatinine 0.6 mg/dL L mg/dL (0.7-1.2) GFR Calculation 139.4 mL/min H mL /min (90-130) Glucose 81 mg/dL mg/dL (65-115) Calculated Osmolal ity 290 mOsm/kg mOsm/ kg (285-295) Calcium 8.0 mg/dL L mg/dL (8.5-10.5) Iron TIBC % Saturation Unsat Iron Binding Total Bilirubin 2.7 mg/dL H mg/dL (0.15-1.2) AST 33 U/L U/L (0-40) ALT 15 U/L U/L (0-41) Alkaline Phosphata se 67 IU/L IU/L (40-130) Total Protein 7.8 g/dL g/dL (6.6-8.7) Albumin 2.5 g/dL L g/dL (3.5-5.2) Globulin 5.3 g/dL H g/dL (1.3-4.6) TSH Urine Color Urine Appearance Urine pH Ur Specific Gravit y Urine Protein Urine Glucose (UA) Urine Ketones Urine Blood Urine Nitrate Urine Bilirubin Urine Urobilinogen Ur Leukocyte Clarissa ase SARS-CoV-2 Ag (Rap id) Blood Type Rho(D) Type Antibody Screen 10/13/21 10/13/21 10/13/21 10:34 10:34 10:34 WBC 3.4 10^3/uL L 10^ 3/uL (4.0-10.0) RBC 2.78 10^6/uL L 10 ^6/uL (4.1-5.3) Hgb 8.7 g/dL L g/dL (11.7-16.6) Hct 25.4 % L % (42.0-52.0) MCV 91.4 fl fl (80-94) MCH 31.3 pg pg (28.0-34.0) MCHC 34.3 g/dL g/dL (30.0-36.0) RDW 20.3 % H % (12.1-15.1) Plt Count 119 10^3/cmm L 10 ^3/cmm (130-400) MPV 9.9 fL fL (7.4-10.4) Neut % (Auto) 28.7 % % Lymph % (Auto) 54.7 % % [place] % (Auto) 12.1 % % Eos % (Auto) 2.4 % % Baso % (Auto) 1.8 % % Neut # (Auto) 0.97 10^3/uL L* 1 0^3/uL (1.8-7.7) Lymph # (Auto) 1.9 10^3/uL 10^3/ uL (0.8-4.8) [place] # (Auto) 0.4 10^3/uL 10^3/ uL (0.2-0.9) Eos # (Auto) 0.1 10^3/uL 10^3/ uL (0.0-0.8) Baso # (Auto) 0.1 10^3/uL 10^3/ uL (0.0-0.1) Nucleated RBC % (a uto) 0 % % Nucleated RBCs # 0.0 /100WBC /100W BC PT 25.20 SECONDS H S ECONDS (12.1-14.9) INR 2.24 H (0.8-1.2) APTT 45.4 SECONDS H SE CONDS (23.9-36.7) Sodium 141 mmol/L mmol/L (136-145) Potassium 3.9 mmol/L mmol/L (3.5-5.1) Chloride 112 mmol/L H mmol /L (98-107) Carbon Dioxide 19 mmol/L L mmol/ L (22-29) Anion Gap 13.9 (5-19) BUN 9 mg/dL mg/dL (6-20) Creatinine 0.6 mg/dL L mg/dL (0.7-1.2) GFR Calculation 139.4 mL/min H mL /min (90-130) Glucose 83 mg/dL mg/dL (65-115) Calculated Osmolal ity 290 mOsm/kg mOsm/ kg (285-295) Calcium 7.8 mg/dL L mg/dL (8.5-10.5) Iron TIBC % Saturation Unsat Iron Binding Total Bilirubin 2.8 mg/dL H mg/dL (0.15-1.2) AST 29 U/L U/L (0-40) ALT 15 U/L U/L (0-41) Alkaline Phosphata se 67 IU/L IU/L (40-130) Total Protein 7.2 g/dL g/dL (6.6-8.7) Albumin 2.2 g/dL L g/dL (3.5-5.2) Globulin 5.0 g/dL H g/dL (1.3-4.6) TSH Urine Color Urine Appearance Urine pH Ur Specific Gravit y Urine Protein Urine Glucose (UA) Urine Ketones Urine Blood Urine Nitrate Urine Bilirubin Urine Urobilinogen Ur Leukocyte Clarissa ase SARS-CoV-2 Ag (Rap id) Blood Type Rho(D) Type Antibody Screen 10/13/21 10:34 WBC RBC Hgb Hct MCV MCH MCHC RDW Plt Count MPV Neut % (Auto) Lymph % (Auto) [place] % (Auto) Eos % (Auto) Baso % (Auto) Neut # (Auto) Lymph # (Auto) [place] # (Auto) Eos # (Auto) Baso # (Auto) Nucleated RBC % (a uto) Nucleated RBCs # PT INR APTT Sodium Potassium Chloride Carbon Dioxide Anion Gap BUN Creatinine GFR Calculation Glucose Calculated Osmolal ity Calcium Iron 50 ug/dL L ug/dL (59-158) TIBC 188 mcg/dl mcg/dl % Saturation 26.5 % % (20-50) Unsat Iron Binding 138 ug/dL ug/dL (112-347) Total Bilirubin AST ALT Alkaline Phosphata se Total Protein Albumin Globulin TSH 4.42 uIU/mL H uIU /mL (0.27-4.20) Urine Color Urine Appearance Urine pH Ur Specific Gravit y Urine Protein Urine Glucose (UA) Urine Ketones Urine Blood Urine Nitrate Urine Bilirubin Urine Urobilinogen Ur Leukocyte Clarissa ase SARS-CoV-2 Ag (Rap id) Blood Type Rho(D) Type Antibody Screen Discharge Plan Discharge Patient Disposition: Placed in Observation Clinical Impression: GI bleed, Liver cirrhosis, Esophageal varices determined by endoscopy Coding Level of Care Code ED Digester Operator for g Fwd Exam Comprehensive
[2021-10-12 10:58] LABS: Add Urine Microscopic? NO; Charge for UA Resulting for Rev
[2021-10-12 11:10] LABS: Alanine Aminotransferase 16 U/L (0-41); Albumin Level 2.3 g/dL (3.5-5.2); Alkaline Phosphatase 81 IU/L (40-130); Anion Gap 16.5 (5-19); Aspartate Amino Transferase 36 U/L (0-40); Blood Urea Nitrogen 12 mg/dL (6-20); Calcium 7.7 mg/dL (8.5-10.5); Carbon Dioxide 18 mmol/L (22-29); Chloride 110 mmol/L (98-107); Globulin 5.4 g/dL (1.3-4.6); Glomerular Filtration Rate 139.4 mL/min (90-130); Glucose 100 mg/dL (65-115); Osmolality Calculated 292 mOsm/kg (285-295); Potassium 3.5 mmol/L (3.5-5.1); Sodium 141 mmol/L (136-145); Total Bilirubin 2.4 mg/dL (0.15-1.2); Total Protein 7.7 g/dL (6.6-8.7)
[2021-10-12 11:11] LABS: Creatinine Clr Calc Pharmacy 150.3584
[2021-10-12] MEDS: iohexol 350 mg/mL 100 mL Btl IV (11:13)
[2021-10-12 11:15] LABS: INR 2.37 (0.8-1.2)
[2021-10-12 11:16] LABS: Partial Thromboplastin Time 45.2 SECONDS (23.9-36.7)
[2021-10-12 11:18] LABS: Bilirubin Urine 1+ (Negative); Blood Urine Neg (Negative); Glucose Urine UA Norm (Normal); Ketones Urine Negative (Negative); Leukocyte Esterase Urine Negative (Negative); Nitrate Urine Negative (Negative); Protein Urine Neg (Negative); Urine Appearance Clear (CLEAR); Urine Color Yellow (Yellow); Urobilinogen Urine 1 mg/dL (Negative); pH Urine 5 (5-7)
[2021-10-12 17:36] LABS: SARS Covid-2 Antigen Negative (Negative)
[2021-10-12 21:27] LABS: Basophils # 0.1 10^3/uL (0.0-0.1); Basophils % 1.2 %; Eosinophils # 0.1 10^3/uL (0.0-0.8); Eosinophils % 1.5 %; Hemoglobin 8.3 g/dL (11.7-16.6); Lymphocytes # 2.1 10^3/uL (0.8-4.8); Lymphocytes % 51.9 %; Mean Corpuscular HGB Conc 36.1 g/dL (30.0-36.0); Mean Corpuscular Hemoglobin 31.7 pg (28.0-34.0); Mean Corpuscular Volume 87.8 fl (80-94); Monocytes # 0.5 10^3/uL (0.2-0.9); Monocytes % 12.6 %; Neutrophils # 1.32 10^3/uL (1.8-7.7); Neutrophils % 32.6 %; Nucleated Red Blood Cells % 0 %; Platelet Count 168 10^3/cmm (130-400); Red Blood Count 2.62 10^6/uL (4.1-5.3); Red Cell Distribution Width 23.1 % (12.1-15.1); White Blood Count 4.1 10^3/uL (4.0-10.0)
[2021-10-12 22:17] LABS: Alanine Aminotransferase 15 U/L (0-41); Albumin Level 2.5 g/dL (3.5-5.2); Alkaline Phosphatase 67 IU/L (40-130); Anion Gap 15.7 (5-19); Aspartate Amino Transferase 33 U/L (0-40); Blood Urea Nitrogen 10 mg/dL (6-20); Carbon Dioxide 19 mmol/L (22-29); Chloride 110 mmol/L (98-107); Globulin 5.3 g/dL (1.3-4.6); Glomerular Filtration Rate 139.4 mL/min (90-130); Glucose 81 mg/dL (65-115); Osmolality Calculated 290 mOsm/kg (285-295); Potassium 3.7 mmol/L (3.5-5.1); Sodium 141 mmol/L (136-145); Total Bilirubin 2.7 mg/dL (0.15-1.2); Total Protein 7.8 g/dL (6.6-8.7)
[2021-10-12 22:18] LABS: Creatinine Clr Calc Pharmacy 150.3584
[2021-10-13] VITALS (15 sets, daily range): BP systolic 81–138; BP diastolic 43–98; PULSE 61–81; RESP 12–18; TEMP 36.3–36.6; O2SAT 94–100; BMI 30.7
[2021-10-13 02:17] LABS: Slide Review Slide Review Perform
[2021-10-13 02:20] LABS: Hematocrit 24.1 % (42.0-52.0); Hemoglobin 8.4 g/dL (11.7-16.6)
[2021-10-13] MEDS: pantoprazole 40 mg SDV 80 MG IVP (04:17)
[2021-10-13] MEDS: potassium chloride premix 20 MEQ/100 ML 50 MEQ IV (04:19)
[2021-10-13] MEDS: sodium chlor 0.9% + KCl 20 mEq 20 MEQ/1,000 ML BAG 125 MEQ IV ×2 (06:51→20:42)
--- NOTE | 2021-10-13 08:46 | P.ANESASSM_ITS ---
Pre-Anesthetic Assessment Pre-Anesthetic Assessment: Height/Weight: Height 1.73 m Weight 90.718 kg Temp Pulse Resp BP Pulse Ox 98.1 F 76 18 106/74 98 10/12/21 16:58 10/13/21 02:00 10/13/21 05:00 10/13/21 05:00 10/13/21 05:00 Preop Diagnosis: GI bleed Proposed Procedure: Operation Date: 10/13/21 09:00 Proposed Procedures p EGD(Not Applicable) - Albaro Banegas MD Familial anesthetic complications: none Was Beta Vianey taken within 24 hours: N/A Was Clonidine taken within 24 hours: N/A Social: Social History: Alcohol (no alcohol since august 17 2021 ) and Tobacco (history years ago) Exam: Pre-Anes Outpt Exam: alert, oriented x 3, clear to auscultation bilaterally and regular rate & rhythm Airway: Submandibular: WNL Cervical ROM: WNL MP: 1 Dentition: Chipped Pulmonary: Pulmonary: Sleep apnea CV/HEM: CV/HEM: None reported : : None reported Hepatic: Hepatic: Cirrohsis GI: GI: GERD (controlled) Metabolic: Metabolic: Thyroid Musc/skel: Musc/skel: None reported Neuropsych: Neuropsych: None reported Anesthetic Plan: ASA status: 2 Anesthesia: MAC Risk of > 500 ml blood loss (7ml/kg in children): No Meds/Allergies Current Medications: Current Medications Generic Name Dose Route Start Last Admin Trade Name Freq PRN Reason Stop Dose Admin Potassium Chloride /Sodium Chloride 20 meq in 1,000 m ls @ 125 mls/hr 10/13/21 06:30 10/13/21 06:51 Sodium Chlor 0.9 % + Kcl 20 Meq IV 125 mls/hr .Q8H CAMERON Administration PFSH Anesthesia PFSH: Medical History GI bleed Hypothyroidism Surgical History H/O esophagogastroduodenoscopy H/O gastric bypass Hx of shoulder surgery Status post colonoscopy Social History Smoking and tobacco status: never smoked Data Anesthesia CBC & Chem 7: 10/13/21 01:59 10/12/21 21:51 Other Labs: Laboratory Results - last 48 hr 10/12/21 10/12/21 10/12/21 10:26 10:26 10:42 WBC 5.0 RBC 3.04 L Hgb 9.5 L Hct 27.2 L MCV 89.5 MCH 31.3 MCHC 34.9 RDW 19.8 H Plt Count 120 L MPV 9.7 Neut % (Auto) 40.5 Lymph % (Auto) 40.8 [place] % (Auto) 15.5 Eos % (Auto) 1.6 Baso % (Auto) 1.2 Neut # (Auto) 2.02 Lymph # (Auto) 2.0 [place] # (Auto) 0.8 Eos # (Auto) 0.1 Baso # (Auto) 0.1 Nucleated RBC % (auto) 0 Nucleated RBCs # 0.0 PT 26.40 H INR 2.37 H APTT 45.2 H Sodium 141 Potassium 3.5 Chloride 110 H Carbon Dioxide 18 L Anion Gap 16.5 BUN 12 Creatinine 0.6 L GFR Calculation 139.4 H Glucose 100 Calculated Osmolality 292 Calcium 7.7 L Total Bilirubin 2.4 H AST 36 ALT 16 Alkaline Phosphatase 81 Total Protein 7.7 Albumin 2.3 L Globulin 5.4 H Urine Color Urine Appearance Urine pH Ur Specific [place] Urine Protein Urine Glucose (UA) Urine Ketones Urine Blood Urine Nitrate Urine Bilirubin Urine Urobilinogen Ur Leukocyte Esterase SARS-CoV-2 Ag (Rapid) Blood Type Rho(D) Type Antibody Screen 10/12/21 10/12/21 10/12/21 10:48 13:24 16:55 WBC RBC Hgb Hct MCV MCH MCHC RDW Plt Count MPV Neut % (Auto) Lymph % (Auto) [place] % (Auto) Eos % (Auto) Baso % (Auto) Neut # (Auto) Lymph # (Auto) [place] # (Auto) Eos # (Auto) Baso # (Auto) Nucleated RBC % (auto) Nucleated RBCs # PT INR APTT Sodium Potassium Chloride Carbon Dioxide Anion Gap BUN Creatinine GFR Calculation Glucose Calculated Osmolality Calcium Total Bilirubin AST ALT Alkaline Phosphatase Total Protein Albumin Globulin Urine Color Yellow Urine Appearance Clear Urine pH 5 Ur Specific [place] 1.020 Urine Protein Neg Urine Glucose (UA) Norm Urine Ketones Negative Urine Blood Neg Urine Nitrate Negative Urine Bilirubin 1+ H Urine Urobilinogen 1 H Ur Leukocyte Esterase Negative SARS-CoV-2 Ag (Rapid) Negative Blood Type O Positive Rho(D) Type Positive Antibody Screen Negative 10/12/21 10/12/21 10/13/21 20:55 21:51 01:59 WBC 4.1 RBC 2.62 L Hgb 8.3 L 8.4 L Hct 23.0 L 24.1 L MCV 87.8 MCH 31.7 MCHC 36.1 H RDW 23.1 H Plt Count 168 D MPV Not Reportable Neut % (Auto) 32.6 Lymph % (Auto) 51.9 [place] % (Auto) 12.6 Eos % (Auto) 1.5 Baso % (Auto) 1.2 Neut # (Auto) 1.32 L Lymph # (Auto) 2.1 [place] # (Auto) 0.5 Eos # (Auto) 0.1 Baso # (Auto) 0.1 Nucleated RBC % (auto) 0 Nucleated RBCs # 0.0 PT INR APTT Sodium 141 Potassium 3.7 Chloride 110 H Carbon Dioxide 19 L Anion Gap 15.7 BUN 10 Creatinine 0.6 L GFR Calculation 139.4 H Glucose 81 Calculated Osmolality 290 Calcium 8.0 L Total Bilirubin 2.7 H AST 33 ALT 15 Alkaline Phosphatase 67 Total Protein 7.8 Albumin 2.5 L Globulin 5.3 H Urine Color Urine Appearance Urine pH Ur Specific [place] Urine Protein Urine Glucose (UA) Urine Ketones Urine Blood Urine Nitrate Urine Bilirubin Urine Urobilinogen Ur Leukocyte Esterase SARS-CoV-2 Ag (Rapid) Blood Type Rho(D) Type Antibody Screen Micro: Microbiology 10/12/21 13:24 Blood Culture - Preliminary Blood SPECIMEN COLLECTED 10/12/21 13:07 Blood Culture - Preliminary Blood SPECIMEN COLLECTED Cardiac Studies: No Data to Display
--- NOTE | 2021-10-13 08:51 | P.CONIM_ITS ---
Providers/Reason For Consult Consulting Physician/Specialty*: Dr. Duckworth Reason for Consult*: GI bleed GI bleed Primary Care Provider: Saba Tompkins DO History of Present Illness History of Present Illness Olu Clemens is a 55 year old male whom I previously whom I had previously seen in the office for anemia. Patient had EGDs and colonoscopy in [place] which were all apparently normal and therefore the plan was for a capsule endoscopy. Patient presented to the ER on 09/30/2021 with weakness and again presented yesterday with weakness but this time it complains of black starry stools. He denies significant abdominal pain, nausea, vomiting, hematemesis. CT abdomen pelvis showed cirrhosis with gastric bypass changes and findings of portal hypertension. Review of Systems General: Reports: 10 or more systems reviewed and unremarkable except in HPI and below Meds/Allergies Home Medications and Allergies Home Medications Medication Instructions Recorded Confirmed Last Taken Type calcium 500 mg PO DAILY 08/17/21 10/12/21 10/12/21 History cholecalciferol (vitamin D3) 25 mcg PO DAILY 08/17/21 10/12/21 10/12/21 History [Vitamin D3] cyclobenzaprine 10 mg PO TID PRN 08/17/21 10/12/21 Unknown History ondansetron HCl 4 mg PO TID PRN 08/17/21 10/12/21 Unknown History pantoprazole 40 mg PO BID 08/17/21 10/12/21 10/12/21 History sucralfate See Rx Instructions .ROUTE .COMPLEX 08/17/21 10/12/21 08/17/21 History vitamin B complex-folic acid 1 tab PO DAILY 08/17/21 10/12/21 10/11/21 History lactulose 10 g PO BEDTIME 10/12/21 10/12/21 10/11/21 History levothyroxine 112 mcg PO DAILY 10/12/21 10/12/21 10/12/21 History spironolactone 25 mg PO BID 10/12/21 10/12/21 10/12/21 History Allergies Allergy/AdvReac Type Severity Reaction Status Date / Time amoxicillin Allergy ALGY-Rash Verified 09/08/21 08:55 Current Medications Current Medications Generic Name Dose Route Start Last Admin Trade Name Freq PRN Reason Stop Dose Admin Potassium Chloride/Sodium Chloride 20 meq in 1,000 mls @ 125 mls/hr 10/13/21 06:30 10/13/21 06:51 Sodium Chlor 0.9% + Kcl 20 Meq IV 125 mls/hr .Q8H CAMERON Administration PFSH Acute PFSH: Medical History GI bleed Hypothyroidism Surgical History H/O esophagogastroduodenoscopy H/O gastric bypass Hx of shoulder surgery Status post colonoscopy Social History Smoking and tobacco status: never smoked Vitals/I&O/Wt Last Vital Signs Temp 97.5 F L 10/13/21 08:49 Pulse 81 10/13/21 08:49 Resp 18 10/13/21 08:49 BP 121/68 10/13/21 08:49 Pulse Ox 100 10/13/21 08:49 10/12/21 10/13/21 10/13/21 22:59 06:59 14:59 Intake Total 337 / 437 100 / 437 Balance 337 / 437 100 / 437 Weight last 48 hrs Weight 200 lb Physical Exam Narrative: EXAM NARRATIVE: HEENT: Normocephalic Eye: Sclera /conjunctiva normal Abdomen: Soft to palpation Neurological: Oriented to place person and time Skin: Intact, no lesions appreciated on gross exam Data Micro: Micro: Microbiology 10/12/21 13:24 Blood Culture - Pr eliminary Blood [facility] 10/12/21 13:07 Blood Culture - Pr eliminary Blood [facility] A&P Assessment and plan (1) GI bleed: 55-year-old male status post gastric bypass with liver cirrhosis and changes of portal hypertension noted on CT scan who presents with black tarry stools. His hemoglobin is trended down from 11.9 to 8.4. Plan for EGD under MAC. If there is no significant abnormality other than varices to explain his GI bleed then patient will need transfer to [facility] for banding of hemorrhoids since this has been an ongoing issue for a few months now. Status: Acute Consult Attestations Medical Necessity Statement: As per attending physician Coding Level of Care Code Acute Marketing Consultant for g Fwd Diagnoses GI bleed K92.2
[2021-10-13] MEDS: sodium chloride 0.9% 1,000 ML 30 ML IV (08:59)
--- NOTE | 2021-10-13 09:31 | ANE.PACU2 ---
Inpatient post-anesthesia follow up: Airway intact: Yes Vital signs: Temperature 97.5 F Pulse Rate 81 Respiratory Rate 18 Blood Pressure 121/68 Pulse Oximetry 100 Oxygen Delivery Me thod Room Air Oxygen Flow Rate Fraction of Inspir ed Oxygen Hydration adequate: Yes Nausea and vomiting: No Pain level: 1 Mental status: Baseline
--- NOTE | 2021-10-13 10:13 | PC.NURSE ---
Received report from GI lab, [facility]. Dr Banegas found Non bleeding esophageal varices . Given Propofol 150mg, and Ns 200 mls. Stable and ready to return to the ER
[2021-10-13 11:00] LABS: Basophils # 0.1 10^3/uL (0.0-0.1); Basophils % 1.8 %; Eosinophils # 0.1 10^3/uL (0.0-0.8); Eosinophils % 2.4 %; Hematocrit 25.4 % (42.0-52.0); Hemoglobin 8.7 g/dL (11.7-16.6); Lymphocytes # 1.9 10^3/uL (0.8-4.8); Lymphocytes % 54.7 %; Mean Corpuscular HGB Conc 34.3 g/dL (30.0-36.0); Mean Corpuscular Hemoglobin 31.3 pg (28.0-34.0); Mean Corpuscular Volume 91.4 fl (80-94); Mean Platelet Volume 9.9 fL (7.4-10.4); Monocytes # 0.4 10^3/uL (0.2-0.9); Monocytes % 12.1 %; Neutrophils % 28.7 %; Nucleated Red Blood Cells % 0 %; Platelet Count 119 10^3/cmm (130-400); Red Blood Count 2.78 10^6/uL (4.1-5.3); Red Cell Distribution Width 20.3 % (12.1-15.1); White Blood Count 3.4 10^3/uL (4.0-10.0)
[2021-10-13 11:09] LABS: INR 2.24 (0.8-1.2)
[2021-10-13 11:10] LABS: Neutrophils # 0.97 10^3/uL (1.8-7.7); Partial Thromboplastin Time 45.4 SECONDS (23.9-36.7)
[2021-10-13 11:16] LABS: Alanine Aminotransferase 15 U/L (0-41); Albumin Level 2.2 g/dL (3.5-5.2); Alkaline Phosphatase 67 IU/L (40-130); Anion Gap 13.9 (5-19); Aspartate Amino Transferase 29 U/L (0-40); Blood Urea Nitrogen 9 mg/dL (6-20); Calcium 7.8 mg/dL (8.5-10.5); Carbon Dioxide 19 mmol/L (22-29); Chloride 112 mmol/L (98-107); Glomerular Filtration Rate 139.4 mL/min (90-130); Glucose 83 mg/dL (65-115); Osmolality Calculated 290 mOsm/kg (285-295); Potassium 3.9 mmol/L (3.5-5.1); Sodium 141 mmol/L (136-145); Total Bilirubin 2.8 mg/dL (0.15-1.2); Total Protein 7.2 g/dL (6.6-8.7)
[2021-10-13 11:18] LABS: Creatinine Clr Calc Pharmacy 150.3584
[2021-10-13] MEDS: pantoprazole 40 mg SDV IVP ×2 (11:31→20:43)
[2021-10-13] MEDS: phytonadione (ADULT) 10 mg/mL Ampule 1 mL 5 MG PO (11:33)
--- NOTE | 2021-10-13 11:53 | P.HP_ITS ---
Providers/Chief Complaint Primary Care Provider: Saba Tompkins DO Chief Complaint: GI BLEED EPISODE, RECENT HX History of Present Illness Olu Clemens is a 55 year old male with past medical history of gastric bypass, alcohol abuse with last alcoholic drink around 2 months ago, alcoholic liver disease leading to liver cirrhosis, GI bleed. Patient presented to the ER on 10/12 and has been on the wait list for transfer to an outside facility given history of varices and possible variceal bleed. Patient was still awaiting bed with mild drop in hemoglobin so medicine and surgery was consulted. Patient had EGDs and colonoscopy in [place] which were all apparently normal and therefore the plan was for a capsule endoscopy. Patient presented to the ER on 09/30/2021 with weakness and again presented yesterday with weakness but this time it complains of black starry stools. He denies significant abdominal pain, nausea, vomiting, hematemesis. CT abdomen pelvis showed cirrhosis with gastric bypass changes and findings of portal hypertension. Patient underwent EGD with Dr. Banegas early in the morning today which showed grade 1 esophageal varices without mucosal erosion or evidence of bleeding without any active source of further bleeding. Blood work from today morning shows a white count of 3.4, hemoglobin of 8.7 (p resenting hemoglobin of 8.3 yesterday, 11.9 on 09/30), INR of 2.24, sodium of 141, chloride of 112, creatinine of 0.6, bilirubin of 2.8, AST/ALT of 29/15, albumin of 2.2 with globulin of 5, COVID-19 rapid antigen negative. Review of Systems General: Reports: 10 or more systems reviewed and unremarkable except in HPI and below Const: Denies: fever(s), chills, body aches, change in appetite, change in weight, malaise, night sweats, diaphoresis, change in sleep pattern, daytime sleepiness or snoring Eyes: Denies: change in vision, blurry vision, photophobia, eye discomfort or eye discharge ENMT: Denies: throat pain, enlarged tonsils, hoarseness, mouth pain, oral sores, dry mouth, tinnitus, nasal congestion or post nasal drip Card: Denies: chest pain, palpitations, irregular heart rhythm, edema, swelling of feet/ankles, lightheadedness, syncope, pre-syncope, dyspnea on exertion, orthopnea, leg pain with exertion or acrocyanosis Resp: Denies: dyspnea, productive cough, non-productive cough, wheezing, stridor, pain on inspiration, change in phlegm color, hemoptysis or chest congestion GI: Denies: abdominal pain, nausea, vomiting, hematemesis, coffee ground emesis, dysphagia, heartburn, diarrhea, constipation, bloating, GI cramping, change in bowel habits, pain on defecation, hematochezia or melena : Denies: flank pain, difficulty urinating, dysuria, urinary frequency, urinary urgency, urinary hesitancy, urinary dribbling, difficulty starting urination, change in urine stream, nocturia or hematuria Musc: Denies: neck pain, back pain, extremity pain, joint pain, joint swelling, joint redness, joint stiffness or limited range of motion Neuro: Denies: headache(s), numbness in extremities, weakness in extremities, sensory changes, lack of coordination, difficulty walking, frequent falls, dizziness, vertigo, confusion, Slurred speech present, difficulty communicating thoughts or seizure-like activity Psych: Denies: anxiety, depression, mood swings, panic attacks, hopelessness or irritability Endo: Denies: polyuria, polydipsia, tired all the time, cold intolerance, excessive sweating, flushing or heat intolerance Ruy/Lymph: Denies: easy bruising or easy bleeding All/Imm: Denies: tongue swelling, facial swelling or acute wheezing Medications/Allergies Home Medications Medication Instructions Recorded Confirmed Last Taken Type calcium 500 mg PO DAILY 08/17/21 10/12/21 10/12/21 History cholecalciferol (vitamin D3) 25 mcg PO DAILY 08/17/21 10/12/21 10/12/21 History [Vitamin D3] cyclobenzaprine 10 mg PO TID PRN 08/17/21 10/12/21 Unknown History ondansetron HCl 4 mg PO TID PRN 08/17/21 10/12/21 Unknown History pantoprazole 40 mg PO BID 08/17/21 10/12/21 10/12/21 History sucralfate See Rx Instructions .ROUTE .COMPLEX 08/17/21 10/12/21 08/17/21 History vitamin B complex-folic acid 1 tab PO DAILY 08/17/21 10/12/21 10/11/21 History lactulose 10 g PO BEDTIME 10/12/21 10/12/21 10/11/21 History levothyroxine 112 mcg PO DAILY 10/12/21 10/12/21 10/12/21 History spironolactone 25 mg PO BID 10/12/21 10/12/21 10/12/21 History Allergies Allergy/AdvReac Type Severity Reaction Status Date / Time amoxicillin Allergy ALGY-Rash Verified 09/08/21 08:55 PFSH Acute PFSH: Medical History (Updated 10/13/21 @ 11:58 by Noe Martinez MD) Alcohol abuse Alcoholic liver disease Esophageal varices determined by endoscopy GI bleed Hypothyroidism Liver cirrhosis Surgical History H/O esophagogastroduodenoscopy H/O gastric bypass Hx of shoulder surgery Status post colonoscopy Social History Smoking and tobacco status: never smoked Vitals/I&O/Wt Last Vital Signs Temp 97.4 F L 10/13/21 09:59 Pulse 71 10/13/21 11:20 Resp 12 10/13/21 09:59 BP 113/72 10/13/21 11:20 Pulse Ox 100 10/13/21 11:20 10/12/21 10/13/21 10/13/21 22:59 06:59 14:59 Intake Total 337 / 337 100 / 437 200 / 200 Balance 337 / 337 100 / 437 200 / 200 Weight last 48 hrs Weight 90.718 kg Physical Exam Narrative: EXAM NARRATIVE: General: No acute distress, AO x3, pallor present HEENT: PERRLA, pupils bilaterally equal and reactive Chest: Normal vesicular breath sounds, no added sounds, equal good air entry bilaterally CVS: S1-S2 regular, no murmurs, no tachycardia, no gallops, no rubs Abdomen: Soft, nontender, no organomegaly, bowel sounds present Neuro: No focal deficits, no facial deformity, AO x3, power 5/5 in all limbs Data : 10/13/21 10:34 10/13/21 10:34 Other Labs: Laboratory Results WBC 3.4 10^3/uL (4.0-10.0) L 10/13/21 10:34 RBC 2.78 10^6/uL (4.1-5.3) L 10/13/21 10:34 Hgb 8.7 g/dL (11.7-16.6) L 10/13/21 10:34 Hct 25.4 % (42.0-52.0) L 10/13/21 10:34 MCV 91.4 fl (80-94) 10/13/21 10:34 MCH 31.3 pg (28.0-34.0) 10/13/21 10:34 MCHC 34.3 g/dL (30.0-36.0) 10/13/21 10:34 RDW 20.3 % (12.1-15.1) H 10/13/21 10:34 Plt Count 119 10^3/cmm (130-400) L 10/13/21 10:34 MPV 9.9 fL (7.4-10.4) 10/13/21 10:34 Neut % (Auto) 28.7 % 10/13/21 10:34 Lymph % (Auto) 54.7 % 10/13/21 10:34 [place] % (Auto) 12.1 % 10/13/21 10:34 Eos % (Auto) 2.4 % 10/13/21 10:34 Baso % (Auto) 1.8 % 10/13/21 10:34 Neut # (Auto) 0.97 10^3/uL (1.8-7.7) L* 10/13/21 10:34 Lymph # (Auto) 1.9 10^3/uL (0.8-4.8) 10/13/21 10:34 [place] # (Auto) 0.4 10^3/uL (0.2-0.9) 10/13/21 10:34 Eos # (Auto) 0.1 10^3/uL (0.0-0.8) 10/13/21 10:34 Baso # (Auto) 0.1 10^3/uL (0.0-0.1) 10/13/21 10:34 Nucleated RBC % (auto) 0 % 10/13/21 10:34 Nucleated RBCs # 0.0 /100WBC 10/13/21 10:34 PT 25.20 SECONDS (12.1-14.9) H 10/13/21 10:34 INR 2.24 (0.8-1.2) H 10/13/21 10:34 APTT 45.4 SECONDS (23.9-36.7) H 10/13/21 10:34 Sodium 141 mmol/L (136-145) 10/13/21 10:34 Potassium 3.9 mmol/L (3.5-5.1) 10/13/21 10:34 Chloride 112 mmol/L (98-107) H 10/13/21 10:34 Carbon Dioxide 19 mmol/L (22-29) L 10/13/21 10:34 Anion Gap 13.9 (5-19) 10/13/21 10:34 BUN 9 mg/dL (6-20) 10/13/21 10:34 Creatinine 0.6 mg/dL (0.7-1.2) L 10/13/21 10:34 GFR Calculation 139.4 mL/min (90-130) H 10/13/21 10:34 Glucose 83 mg/dL (65-115) 10/13/21 10:34 Calculated Osmolality 290 mOsm/kg (285-295) 10/13/21 10:34 Calcium 7.8 mg/dL (8.5-10.5) L 10/13/21 10:34 Total Bilirubin 2.8 mg/dL (0.15-1.2) H 10/13/21 10:34 AST 29 U/L (0-40) 10/13/21 10:34 ALT 15 U/L (0-41) 10/13/21 10:34 Alkaline Phosphatase 67 IU/L (40-130) 10/13/21 10:34 Total Protein 7.2 g/dL (6.6-8.7) 10/13/21 10:34 Albumin 2.2 g/dL (3.5-5.2) L 10/13/21 10:34 Globulin 5.0 g/dL (1.3-4.6) H 10/13/21 10:34 Urine Color Yellow (Yellow) 10/12/21 10:48 Urine Appearance Clear (CLEAR) 10/12/21 10:48 Urine pH 5 (5-7) 10/12/21 10:48 Ur Specific [place] 1.020 (1.005-1.030) 10/12/21 10:48 Urine Protein Neg (Negative) 10/12/21 10:48 Urine Glucose (UA) Norm (Normal) 10/12/21 10:48 Urine Ketones Negative (Negative) 10/12/21 10:48 Urine Blood Neg (Negative) 10/12/21 10:48 Urine Nitrate Negative (Negative) 10/12/21 10:48 Urine Bilirubin 1+ (Negative) H 10/12/21 10:48 Urine Urobilinogen 1 mg/dL (Negative) H 10/12/21 10:48 Ur Leukocyte Esterase Negative (Negative) 10/12/21 10:48 SARS-CoV-2 Ag (Rapid) Negative (Negative) 10/12/21 16:55 Blood Type O Positive 10/12/21 13:24 Rho(D) Type Positive 10/12/21 13:24 Antibody Screen Negative 10/12/21 13:24 Impressions Abdomen/Pelvis CT 10/12/21 10:30 IMPRESSION: 1. Prior gastric bypass with gastric pouch. Small esophageal hernia. 2. Cirrhotic contour to the liver with hepatomegaly and heterogeneous enhanc ement unchanged. Evidence of portal hypertension. 3. Small right greater than left pleural effusions unchanged. 4. Small amount of ascites in the pelvis. 5. Sigmoid diverticulosis. No evidence of acute diverticulitis. 6. Previously described mild colitis appears nearly resolved compared to previ ous with mild residual thickening and induration involving the transverse colon and left descending colon. ADDENDUM: 10/12/21 1215 IMPRESSION: 1. Prior gastric bypass with gastric pouch. Small esophageal hernia. 2. Cirrhotic contour to the liver with hepatomegaly and heterogeneous enhancement unchanged. Evidence of portal hypertension. 3. Small right greater than left pleural effusions unchanged. 4. Small amount of ascites in the pelvis. 5. Sigmoid diverticulosis. No evidence of acute diverticulitis. 6. Previously described mild colitis appears nearly resolved compared to previous with mild residual thickening and induration involving the transverse colon and left descending colon. Micro: Microbiology 10/12/21 13:24 Blood Culture - Preliminary Blood SPECIMEN COLLECTED 10/12/21 13:07 Blood Culture - Preliminary Blood SPECIMEN COLLECTED A&P Assessment and plan (1) GI bleed: Status: Acute (2) Liver cirrhosis: Status: Acute (3) Supratherapeutic INR: Status: Acute (4) Alcoholic liver disease: Status: Acute (5) Esophageal varices determined by endoscopy: Status: Acute Additional A&P Information Acute anemia secondary to GI bleed: Baseline hemoglobin 11.915 days ago. 8.3 yesterday trending to 8.7 today. Patient states he has been having melanotic bowel movements on and off for last 6 months. Post endoscopy without any active source of GI or esophageal varices today. Most likely GI bleed from gastric and remanent for which patient would need further evaluation with IR. Appreciate Dr. Banegas's recommendation. Protonix 40 mg IV twice daily. Carafate before meals and at bedtime. Octreotide 1 dose. For supratherapeutic INR with ongoing GI bleed will give 5 mg of oral vitamin K. We will transfuse if hemoglobin drops below 8. Check iron panel. Start on IV iron infusion. Repeat hemoglobin and hematocrit at 6 PM. Check INR tomorrow morning. Continue other chronic medications including spironolactone, levothyroxine. Full code. Clear liquid diet. Protonix for PUD prophylaxis. SCDs for DVT prophylaxis, hold off on medical DVT prophylaxis given ongoing an emia from bleeding. Attestations Medical Necessity Statement*: Admission under observation for anemia secondary to acute GI bleed in setting of liver cirrhosis and supratherapeutic INR Time Spent in Patient Care: Greater than 35 minutes (>than 50% of time spent in counselling and/or direct pt care on unit) . Coding Level of Care Code Acute [employer] Line Crew Member for Naz Fwd Diagnoses GI bleed K92.2 Liver cirrhosis K74.60 Supratherapeutic INR R79.1 Alcoholic liver disease K70.9 Esophageal varices determined by endoscopy I85.00
[2021-10-13 12:38] LABS: Iron 50 ug/dL (59-158); Percent Saturation 26.5 % (20-50); Thyroid Stimulating Hormone 4.42 uIU/mL (0.27-4.20); Total Iron Binding Capacity 188 mcg/dl; Unsaturated Iron Binding 138 ug/dL (112-347)
[2021-10-13] MEDS: octreotide 100 mcg/mL SDV 25 MCG IVP (13:06)
[2021-10-13] MEDS: sucralfate 1 gm/10 mL Oral Liq UDC PO ×2 (13:08→20:43)
[2021-10-13] MEDS: iron sucrose 200 MG in sodium chloride 0.9% (100 ml) 100 ML 220 MG IV (13:13)
[2021-10-13 16:43] LABS: Free T4 Free Thyroxine 1.42 ng/dL (0.82-1.77); T3 Free 1.7 PG/ML (2.0-4.4)
[2021-10-13 19:07] LABS: Hematocrit 28.4 % (42.0-52.0); Hemoglobin 9.6 g/dL (11.7-16.6)
[2021-10-13] MEDS: spironolactone 25 mg Tablet PO (20:43)
--- NOTE | 2021-10-14 00:29 | PC.NURSE ---
1999 Sitting up in bed. talking on phone. No distress. Oriented to room and plan of care. voices understanding.
--- NOTE | 2021-10-14 00:30 | PC.NURSE ---
2200 Ice chips given per pt request. refused water. No distress.
--- NOTE | 2021-10-14 00:45 | PC.NURSE ---
Pt unhooked self from IV and ambulated to bathroom without calling for help. [place] IV pump alarming. Walked into pt room to find pt standing at sink washing hands. Ambulated back to bed. This nurse hooked IV back to [t. Instructed pt to not unhook IV and to call for assistance when needing to get up. Voices understanding.
--- NOTE | 2021-10-14 02:06 | PC.NURSE ---
0200 Resting in bed. No distress. Call light in reach. IV patent
[2021-10-14 04:00] VITALS: BP 126/75; PULSE 72; RESP 17; TEMP 36.5; O2SAT 98
--- NOTE | 2021-10-14 04:27 | PC.NURSE ---
0400 lying in bed. Easily awakens. Denies requests.
[2021-10-14 05:59] LABS: Basophils # 0.1 10^3/uL (0.0-0.1); Basophils % 1.4 %; Eosinophils # 0.1 10^3/uL (0.0-0.8); Eosinophils % 3.2 %; Hematocrit 26.4 % (42.0-52.0); Hemoglobin 8.8 g/dL (11.7-16.6); Lymphocytes # 2.1 10^3/uL (0.8-4.8); Lymphocytes % 58.9 %; Mean Corpuscular HGB Conc 33.3 g/dL (30.0-36.0); Mean Corpuscular Hemoglobin 30.9 pg (28.0-34.0); Mean Corpuscular Volume 92.6 fl (80-94); Mean Platelet Volume 11.1 fL (7.4-10.4); Monocytes # 0.3 10^3/uL (0.2-0.9); Monocytes % 9.8 %; Neutrophils % 26.7 %; Nucleated Red Blood Cells % 0 %; Platelet Count 118 10^3/cmm (130-400); Red Blood Count 2.85 10^6/uL (4.1-5.3); Red Cell Distribution Width 20.5 % (12.1-15.1); White Blood Count 3.5 10^3/uL (4.0-10.0)
--- NOTE | 2021-10-14 06:06 | PC.NURSE ---
0600 Sitting up in bed using personal computer. Assisted to bathroom with standby. Tolerates well. No distress.
[2021-10-14 06:13] LABS: INR 2.24 (0.8-1.2)
[2021-10-14 06:31] LABS: Alanine Aminotransferase 13 U/L (0-41); Albumin Level 2.2 g/dL (3.5-5.2); Alkaline Phosphatase 70 IU/L (40-130); Anion Gap 14.8 (5-19); Aspartate Amino Transferase 29 U/L (0-40); Blood Urea Nitrogen 8 mg/dL (6-20); Calcium 7.8 mg/dL (8.5-10.5); Carbon Dioxide 18 mmol/L (22-29); Chloride 110 mmol/L (98-107); Globulin 4.9 g/dL (1.3-4.6); Glomerular Filtration Rate 139.4 mL/min (90-130); Glucose 71 mg/dL (65-115); Osmolality Calculated 285 mOsm/kg (285-295); Potassium 3.8 mmol/L (3.5-5.1); Sodium 139 mmol/L (136-145); Total Bilirubin 2.8 mg/dL (0.15-1.2); Total Protein 7.1 g/dL (6.6-8.7)
[2021-10-14 06:32] LABS: Creatinine Clr Calc Pharmacy 151.0647
[2021-10-14 06:34] LABS: Neutrophils # 0.93 10^3/uL (1.8-7.7)
[2021-10-14 07:33] VITALS: BP 115/73; PULSE 67; RESP 16; TEMP 36.9; O2SAT 97
--- NOTE | 2021-10-14 10:18 | PC.CHAP ---
Pastoral Care Encounter/Spiritual Assessment Type of Contact [] Declined labor relations analyst visit [] Patient/Family/Request visit [] Outpatient visit [] Follow-up visit [] Physician referral [] Code/Alert [x] Routine visit [] Staff referral [] Actively dying [] Patient sleeping [] Family support [] [] Out of room [] Palliative care [] [] Receiving care in room [] Pre-surgical visit [] Trauma [] Long length of stay [] ICU visit [] Other: Relational/Emotional Strength [x] Patient feels connected with others/family/visitors/staff [] Distress [] Loneliness/isolation [] Abandonment Spirituality of Patient [x] Person of Es [x] Attends Roman Catholic of their Es [x] Believes in Prayer [x] Reads Bible or Mormonism materials [] There are Spiritual issues to be addressed Donor Services Manager Interventions [x] Prayer [x] Active listening [x] Non-anxious presence [] Spiritual/emotional support [] Crisis/trauma care [] Spiritual counseling [] Bereavement support [] Provided bereavement packet [] Provided Bible/devotional materials [] Provided toy/stuffed animal, coloring book to patient or family member [] Provided Communion [] Anointing/[place] [] Salvation [x] Completed spiritual assessment [] Other: Impact on Illness or Injury [] Angry [] Fearful [] Anxious [] Often cries [] Exhaustion [] Unable to work [] Unable to attend hoahaoism [] Unable to walk/stand [] Unable to read [] Unable to drive [] Unable to eat/drink [] Unable to sleep [] Unable to be with family [] Patient intubated [] Other: Summary Time spent with patient 10 min
--- NOTE | 2021-10-14 11:01 | PM.DCS ---
Discharge Providers Date of Admission: 10/13/21 11:45 Date of Discharge: October 14, 2021 Attending Provider at Admission: Noe Martinez MD Attending Provider at Discharge: Noe Martinez MD Consults: Surgery: Dr. Banegas Primary Care Provider: Saba Tompkins DO Diagnoses at Discharge Discharge Diagnosis (1) GI bleed: Status: Acute (2) Liver cirrhosis: Status: Acute (3) Supratherapeutic INR: Status: Acute (4) Alcoholic liver disease: Status: Acute (5) Esophageal varices determined by endoscopy: Status: Acute Reason for Visit Reason for Visit: GI BLEED EPISODE, RECENT HX Hospital Course Hospital Course Olu Clemens is a 55 year old male with past medical history of gastric bypass, alcohol abuse with last alcoholic drink around 2 months ago, alcoholic liver disease leading to liver cirrhosis, GI bleed. Patient presented to the ER on 10/12 and has been on the wait list for transfer to an outside facility given history of varices and possible variceal bleed. Patient was still awaiting bed with mild drop in hemoglobin so medicine and surgery was consulted. Patient had EGDs and colonoscopy in [place] which were all apparently normal and therefore the plan was for a capsule endoscopy. Patient presented to the ER on 09/30/2021 with weakness and again presented yesterday with weakness but this time it complains of black starry stools. He denies significant abdominal pain, nausea, vomiting, hematemesis. CT abdomen pelvis showed cirrhosis with gastric bypass changes and findings of portal hypertension. Patient underwent EGD with Dr. Banegas early in the morning today which showed grade 1 esophageal varices without mucosal erosion or evidence of bleeding without any active source of further bleeding. It is possible that patient's symptoms of recurrent GI bleed is coming from gastric remnant from gastric bypass surgery for which he will require further evaluation with IR. Patient was admitted for further evaluation observation. During hospitalization his hemoglobin remained stable. Patient tolerated full liquid diet well. On admission patient was found to have supratherapeutic INR for which he needed 1 dose of oral vitamin. Patient did not have melena during hospitalization. His hemoglobin on discharge is 8.8. Patient is been discharged in hemodynamically stable condition with advised to follow-up with his PCP within next [address] Banegas as an outpatient within next 1 week. Patient would need a referral batch records clerk and IR at [facility] for further evaluation of possible GI bleed for gastric remnant in post gastric bypass surgery patient. Physical Exam Narrative: EXAM NARRATIVE: General: No acute distress, AO x3, pallor present, icteric HEENT: PERRLA, pupils bilaterally equal and reactive Chest: Normal vesicular breath sounds, no added sounds, equal good air entry bilaterally CVS: S1-S2 regular, no murmurs, no tachycardia, no gallops, no rubs Abdomen: Soft, nontender, no organomegaly, bowel sounds present Neuro: No focal deficits, no facial deformity, AO x3, power 5/5 in all limbs Discharge Data Data Completed and Pending: Completed Studies During Hospitalization Category Date Time Status CT abdomen pelvis w con* [id number] Stat Cat Scan 10/12/21 10:30 Completed Pending at discharge Category Date Time Status ABO/Rh Type Routi ne Lab 10/12/21 13:24 Results Blood Culture Sta t Lab 10/12/21 13:24 Results Complete Crossmat ch Routine Lab 10/12/21 13:24 Results Frozen Plasma FZ <24 1st Cont Routi ne Lab 10/12/21 13:24 Results Platelets Leuko-R educed Routine Lab 10/12/21 13:24 Results Type and Screen R outine Lab 10/12/21 13:24 Results Labs from last 24 hours 10/14/21 10/14/21 10/14/21 05:05 05:05 05:05 WBC 3.5 L RBC 2.85 L Hgb 8.8 L Hct 26.4 L MCV 92.6 MCH 30.9 MCHC 33.3 RDW 20.5 H Plt Count 118 L MPV 11.1 H Neut % (Auto) 26.7 Lymph % (Auto) 58.9 [place] % (Auto) 9.8 Eos % (Auto) 3.2 Baso % (Auto) 1.4 Neut # (Auto) 0.93 L* Lymph # (Auto) 2.1 [place] # (Auto) 0.3 Eos # (Auto) 0.1 Baso # (Auto) 0.1 Nucleated RBC % (a uto) 0 Nucleated RBCs # 0.0 PT 25.30 H INR 2.24 H APTT Sodium 139 Potassium 3.8 Chloride 110 H Carbon Dioxide 18 L Anion Gap 14.8 BUN 8 Creatinine 0.6 L GFR Calculation 139.4 H Glucose 71 Calculated Osmolal ity 285 Calcium 7.8 L Iron TIBC % Saturation Unsat Iron Binding Total Bilirubin 2.8 H AST 29 ALT 13 Alkaline Phosphata se 70 Total Protein 7.1 Albumin 2.2 L Globulin 4.9 H TSH Free T4 Free T3 10/13/21 10/13/21 10/13/21 19:01 10:34 10:34 WBC RBC Hgb 9.6 L Hct 28.4 L MCV MCH MCHC RDW Plt Count MPV Neut % (Auto) Lymph % (Auto) [place] % (Auto) Eos % (Auto) Baso % (Auto) Neut # (Auto) Lymph # (Auto) [place] # (Auto) Eos # (Auto) Baso # (Auto) Nucleated RBC % (a uto) Nucleated RBCs # PT INR APTT Sodium Potassium Chloride Carbon Dioxide Anion Gap BUN Creatinine GFR Calculation Glucose Calculated Osmolal ity Calcium Iron 50 L TIBC 188 % Saturation 26.5 Unsat Iron Binding 138 Total Bilirubin AST ALT Alkaline Phosphata se Total Protein Albumin Globulin TSH 4.42 H Free T4 1.42 Free T3 1.7 L 10/13/21 10/13/21 10/13/21 10:34 10:34 10:34 WBC 3.4 L RBC 2.78 L Hgb 8.7 L Hct 25.4 L MCV 91.4 MCH 31.3 MCHC 34.3 RDW 20.3 H Plt Count 119 L MPV 9.9 Neut % (Auto) 28.7 Lymph % (Auto) 54.7 [place] % (Auto) 12.1 Eos % (Auto) 2.4 Baso % (Auto) 1.8 Neut # (Auto) 0.97 L* Lymph # (Auto) 1.9 [place] # (Auto) 0.4 Eos # (Auto) 0.1 Baso # (Auto) 0.1 Nucleated RBC % (a uto) 0 Nucleated RBCs # 0.0 PT 25.20 H INR 2.24 H APTT 45.4 H Sodium 141 Potassium 3.9 Chloride 112 H Carbon Dioxide 19 L Anion Gap 13.9 BUN 9 Creatinine 0.6 L GFR Calculation 139.4 H Glucose 83 Calculated Osmolal ity 290 Calcium 7.8 L Iron TIBC % Saturation Unsat Iron Binding Total Bilirubin 2.8 H AST 29 ALT 15 Alkaline Phosphata se 67 Total Protein 7.2 Albumin 2.2 L Globulin 5.0 H TSH Free T4 Free T3 Addt'l Data from Hospital Stay: Laboratory Results WBC 3.5 10^3/uL (4.0- 10.0) L 10/14/21 05:05 RBC 2.85 10^6/uL (4.1 -5.3) L 10/14/21 05:05 Hgb 8.8 g/dL (11.7-16 .6) L 10/14/21 05:05 Hct 26.4 % (42.0-52.0 ) L 10/14/21 05:05 MCV 92.6 fl (80-94) 10/14/21 05:05 MCH 30.9 pg (28.0-34. 0) 10/14/21 05:05 MCHC 33.3 g/dL (30.0-3 6.0) 10/14/21 05:05 RDW 20.5 % (12.1-15.1 ) H 10/14/21 05:05 Plt Count 118 10^3/cmm (130 -400) L 10/14/21 05:05 MPV 11.1 fL (7.4-10.4 ) H 10/14/21 05:05 Neut % (Auto) 26.7 % 10/14/21 05:05 Lymph % (Auto) 58.9 % 10/14/21 05:05 [place] % (Auto) 9.8 % 10/14/21 05:05 Eos % (Auto) 3.2 % 10/14/21 05:05 Baso % (Auto) 1.4 % 10/14/21 05:05 Neut # (Auto) 0.93 10^3/uL (1.8 -7.7) L* 10/14/21 05:05 Lymph # (Auto) 2.1 10^3/uL (0.8- 4.8) 10/14/21 05:05 [place] # (Auto) 0.3 10^3/uL (0.2- 0.9) 10/14/21 05:05 Eos # (Auto) 0.1 10^3/uL (0.0- 0.8) 10/14/21 05:05 Baso # (Auto) 0.1 10^3/uL (0.0- 0.1) 10/14/21 05:05 Nucleated RBC % (a uto) 0 % 10/14/21 05:05 Nucleated RBCs # 0.0 /100WBC 10/14/21 05:05 PT 25.30 SECONDS (12 .1-14.9) H 10/14/21 05:05 INR 2.24 (0.8-1.2) H 10/14/21 05:05 APTT 45.4 SECONDS (23. 9-36.7) H 10/13/21 10:34 Sodium 139 mmol/L (136-1 45) 10/14/21 05:05 Potassium 3.8 mmol/L (3.5-5 .1) 10/14/21 05:05 Chloride 110 mmol/L (98-10 7) H 10/14/21 05:05 Carbon Dioxide 18 mmol/L (22-29) L 10/14/21 05:05 Anion Gap 14.8 (5-19) 10/14/21 05:05 BUN 8 mg/dL (6-20) 10/14/21 05:05 Creatinine 0.6 mg/dL (0.7-1. 2) L 10/14/21 05:05 GFR Calculation 139.4 mL/min (90- 130) H 10/14/21 05:05 Glucose 71 mg/dL (65-115) 10/14/21 05:05 Calculated Osmolal ity 285 mOsm/kg (285- 295) 10/14/21 05:05 Calcium 7.8 mg/dL (8.5-10 .5) L 10/14/21 05:05 Iron 50 ug/dL (59-158) L 10/13/21 10:34 TIBC 188 mcg/dl 10/13/21 10:34 % Saturation 26.5 % (20-50) 10/13/21 10:34 Unsat Iron Binding 138 ug/dL (112-34 7) 10/13/21 10:34 Total Bilirubin 2.8 mg/dL (0.15-1 .2) H 10/14/21 05:05 AST 29 U/L (0-40) 10/14/21 05:05 ALT 13 U/L (0-41) 10/14/21 05:05 Alkaline Phosphata se 70 IU/L (40-130) 10/14/21 05:05 Total Protein 7.1 g/dL (6.6-8.7 ) 10/14/21 05:05 Albumin 2.2 g/dL (3.5-5.2 ) L 10/14/21 05:05 Globulin 4.9 g/dL (1.3-4.6 ) H 10/14/21 05:05 TSH 4.42 uIU/mL (0.27 -4.20) H 10/13/21 10:34 Free T4 1.42 ng/dL (0.82- 1.77) 10/13/21 10:34 Free T3 1.7 PG/ML (2.0-4. 4) L 10/13/21 10:34 Urine Color Yellow (Yellow) 10/12/21 10:48 Urine Appearance Clear (CLEAR) 10/12/21 10:48 Urine pH 5 (5-7) 10/12/21 10:48 Ur Specific Gravit y 1.020 (1.005-1.0 30) 10/12/21 10:48 Urine Protein Neg (Negative) 10/12/21 10:48 Urine Glucose (UA) Norm (Normal) 10/12/21 10:48 Urine Ketones Negative (Negati ve) 10/12/21 10:48 Urine Blood Neg (Negative) 10/12/21 10:48 Urine Nitrate Negative (Negati ve) 10/12/21 10:48 Urine Bilirubin 1+ (Negative) H 10/12/21 10:48 Urine Urobilinogen 1 mg/dL (Negative ) H 10/12/21 10:48 Ur Leukocyte Clarissa ase Negative (Negati ve) 10/12/21 10:48 SARS-CoV-2 Ag (Rap id) Negative (Negati ve) 10/12/21 16:55 Blood Type O Positive 10/12/21 13:24 Rho(D) Type Positive 10/12/21 13:24 Antibody Screen Negative 10/12/21 13:24 Impressions Abdomen/Pelvis CT 10/12/21 10:30 IMPRESSION: 1. Prior gastric bypass with gastric pouch. Small esophageal hernia. 2. Cirrhotic contour to the liver with hepatomegaly and heterogeneous enhancement unchanged. Evidence of portal hypertension. 3. Small right greater than left pleural effusions unchanged. 4. Small amount of ascites in the pelvis. 5. Sigmoid diverticulosis. No evidence of acute diverticulitis. 6. Previously described mild colitis appears nearly resolved compared to previous with mild residual thickening and induration involving the transverse colon and left descending colon. ADDENDUM: 10/12/21 1215 IMPRESSION: 1. Prior gastric bypass with gastric pouch. Small esophageal hernia. 2. Cirrhotic contour to the liver with hepatomegaly and heterogeneous enhancement unchanged. Evidence of portal hypertension. 3. Small right greater than left pleural effusions unchanged. 4. Small amount of ascites in the pelvis. 5. Sigmoid diverticulosis. No evidence of acute diverticulitis. 6. Previously described mild colitis appears nearly resolved compared to previous with mild residual thickening and induration involving the transverse colon and left descending colon. Vitals: Last Vital Signs Temp 98.4 F 10/14/21 07:33 Pulse 67 10/14/21 07:33 Resp 16 10/14/21 07:33 BP 115/73 10/14/21 07:33 Pulse Ox 97 10/14/21 07:33 Discharge Plan Discharge Patient Disposition: Home Condition: Stable Prescriptions: New levothyroxine 125 mcg Tablet 125 mcg PO DAILY 30 Days Qty: 30 RF: 0 ferrous sulfate 324 mg (65 mg iron) tablet,delayed release (DR/EC) 324 mg PO DAILY Qty: 30 RF: 0 Continued spironolactone 25 mg Tablet 25 mg PO BID RF: 0 lactulose 10 gram packet 10 g PO BEDTIME RF: 0 cyclobenzaprine 10 mg tablet 10 mg PO TID PRN (Reason: Muscle Spasm) RF: 0 sucralfate 100 mg/mL suspension See Rx Instructions .ROUTE .COMPLEX RF: 0 ondansetron HCl 4 mg tablet 4 mg PO TID PRN (Reason: Nausea And Vomiting) RF: 0 pantoprazole 40 mg tablet,delayed release (DR/EC) 40 mg PO BID RF: 0 calcium 250 mg Tablet 500 mg PO DAILY RF: 0 cholecalciferol (vitamin D3) [Vitamin D3] 25 mcg (1,000 unit) Capsule 25 mcg PO DAILY RF: 0 vitamin B complex-folic acid 1 tab PO DAILY RF: 0 Discontinued levothyroxine 112 mcg tablet 112 mcg PO DAILY RF: 0 Discharge Orders: Discharge Order (Routine); Ordered 10/14/21 Ordered By: Noe Martinez Referrals: Saba Tompkins DO [Primary Care Provider] - Discharge Diet: Advance as tolerated and GI Soft Discharge Activity: Resume usual activity Patient Instructions: GI Discharge Instructions, Opioid Safety Activity Restrictions/Additional Instructions: Please follow-up with your primary care provider within next 1 week. Please follow-up with Dr. Banegas within next 1 week for further evaluation and possible referral for batch records clerk at [facility]. Please take GI soft diet for next 2 days and advance gradually to a regular diet. Please continue take Protonix and Carafate as before. Your dose of levothyroxine has been increased to 125 mcg daily. Discharge Attestations Time Spent in Discharge Care*: greater than 30 min Specific Discharge Activities: educating patient, discussing with pcp/other providers, discussing with oil field caser/social workers/dc planners, documenting/other paperwork and evaluating patient/reviewing data Status at Discharge: Cognitive status at discharge: cognitively intact, Behavioral status at discharge: cooperative, Functional status at discharge: independent ambulation Overall status at discharge: patient is back to baseline Quality Metrics Clinical Quality Measures During this hospital stay, did patient experience: None Coding Level of Care Code Acute Chg DC note Diagnoses GI bleed K92.2 Liver cirrhosis K74.60 Supratherapeutic INR R79.1 Alcoholic liver disease K70.9 Esophageal varices determined by endoscopy I85.00
[2021-10-14] MEDS: spironolactone 25 mg Tablet PO (11:02)
[2021-10-14] MEDS: levothyroxine 125 mcg Tablet PO (11:02)
[2021-10-14 11:03] VITALS: BP 111/74; PULSE 74; RESP 16; TEMP 36.7; O2SAT 97
[2021-10-14] MEDS: sucralfate 1 gm/10 mL Oral Liq UDC PO (11:03)
[2021-10-14 12:57] VITALS: BP 111/74; PULSE 74; RESP 16; TEMP 36.7; O2SAT 97
== END 2021-10-14 12:58 | disposition home or self-care (01) ==
LOC: ER 10-13 13:53 → MEDSURG 10-13 17:53
PROVIDERS: Emergency Medicine; Physician Assistant; Surgery; Admitting Provider Student in an Organized Health Care Education/Training Program; Emergency Provider Family Medicine; PCP Family Medicine; Visit Provider Student in an Organized Health Care Education/Training Program
PROC: 0DJ08ZZ Inspection of Upper Intestinal Tract, Via Natural or Artificial Opening Endoscopic (ICD-10-PCS; CPT 43235; principal; 2021-10-13 09:00)
DX: K92.2 Gastrointestinal hemorrhage, unspecified (principal); K74.60 Unspecified cirrhosis of liver; R79.1 Abnormal coagulation profile; K70.9 Alcoholic liver disease, unspecified; I85.00 Esophageal varices without bleeding; Z98.84 Bariatric surgery status; E03.9 Hypothyroidism, unspecified; G47.30 Sleep apnea, unspecified; K21.9 Gastro-esophageal reflux disease without esophagitis
CPT/HCPCS: 36415; 36430; 43235; 74177; 80053; 81003; 83540; 83550; 84439; 84443; 84481; 85014; 85018; 85025; 85610; 85730; 86850; 86900; 86927; 87040; 87426; 93005; 94664; 96365; 96366; 96367; 96375; 99285; C9113; G0378; J1756; J2354; J2704; J3430; J3480; J7030; P9017; Q9967

== ENCOUNTER 2021-11-24 18:35 | Emergency (ER) | payer BC, SELFPAY ==
[2021-11-24 18:52] VITALS: BP 127/76; PULSE 109; RESP 20; TEMP 36.7; O2SAT 100; BMI 30.4
[2021-11-25 00:15] LABS: INR 2.43 (0.8-1.2)
[2021-11-25 00:18] LABS: Basophils # 0.1 10^3/uL (0.0-0.1); Basophils % 1.4 %; Eosinophils # 0.1 10^3/uL (0.0-0.8); Eosinophils % 1.1 %; Hematocrit 24.9 % (42.0-52.0); Hemoglobin 8.3 g/dL (11.7-16.6); Lymphocytes # 2.9 10^3/uL (0.8-4.8); Lymphocytes % 51.5 %; Mean Corpuscular HGB Conc 33.3 g/dL (30.0-36.0); Mean Corpuscular Hemoglobin 31.8 pg (28.0-34.0); Mean Corpuscular Volume 95.4 fl (80-94); Mean Platelet Volume 9.7 fL (7.4-10.4); Monocytes # 0.6 10^3/uL (0.2-0.9); Monocytes % 10.7 %; Neutrophils # 1.98 10^3/uL (1.8-7.7); Neutrophils % 35.1 %; Nucleated Red Blood Cells % 0 %; Platelet Count 113 10^3/cmm (130-400); Red Blood Count 2.61 10^6/uL (4.1-5.3); Red Cell Distribution Width 18.4 % (12.1-15.1); White Blood Count 5.6 10^3/uL (4.0-10.0)
[2021-11-25 00:21] LABS: Alanine Aminotransferase 14 U/L (0-41); Albumin Level 2.2 g/dL (3.5-5.2); Alkaline Phosphatase 89 IU/L (40-130); Aspartate Amino Transferase 27 U/L (0-40); Blood Urea Nitrogen 15 mg/dL (6-20); Calcium 8.4 mg/dL (8.5-10.5); Chloride 106 mmol/L (98-107); Globulin 4.7 g/dL (1.3-4.6); Glomerular Filtration Rate 116.7 mL/min (90-130); Glucose 95 mg/dL (65-115); Osmolality Calculated 277 mOsm/kg (285-295); Potassium 4.1 mmol/L (3.5-5.1); Sodium 133 mmol/L (136-145); Total Bilirubin 2.4 mg/dL (0.15-1.2); Total Protein 6.9 g/dL (6.6-8.7)
[2021-11-25 01:06] LABS: Anion Gap 14.1 (5-19); Carbon Dioxide 17 mmol/L (22-29)
--- NOTE | 2021-11-25 01:54 | W.ED.ABDPA2 ---
HPI - Abdominal Pain General: Chief Complaint: Abdominal Pain Stated Complaint: GI Bleed Time Seen by Provider: 11/25/21 00:22 Source: patient Mode of arrival: ambulatory Limitations: no limitations History of Present Illness: 55-year-old male has a history of alcoholic cirrhosis he also has a history of gastric bypass and has had GI bleeds multiple times. States that starting last night he has been having bright red blood per rectum. He denies any vomiting blood denies any black tarry stools. He states he has had some weakness. Denies any worsening or improving factors. Associated Symptoms: Reports hematochezia; Denies chills, dysuria and fever(s) Review of Systems Const: Denies: fever(s), chills, body aches or change in appetite Eyes: Denies: blurry vision or eye discomfort ENMT: Denies: throat pain or dental pain Card: Denies: chest pain Resp: Denies: dyspnea GI: Reports: hematochezia : Denies: dysuria Musc: Denies: neck pain or back pain Skin/Breast: Denies: rash Neuro: Denies: headache(s) Psych: Denies: depression Ruy/Lymph: Denies: easy bruising All/Imm: Denies: urticaria PFSH ED PFSH: Medical History Alcohol abuse Alcoholic liver disease Esophageal varices determined by endoscopy GI bleed Hypothyroidism Liver cirrhosis Surgical History H/O esophagogastroduodenoscopy H/O gastric bypass Hx of shoulder surgery Status post colonoscopy Physical Exam Const: COMMON NORMALS: no acute distress, patient oriented x3 and healthy appearing HENMT: COMMON NORMALS: normocephalic and atraumatic HEAD & SCALP: normocephalic and atraumatic Eye: COMMON NORMALS: Equal, round and reactive pupils present and EOMs intact bilaterally PUPIL: Yes Equal, round and reactive pupils present Neck/C-Spine: COMMON NORMALS: full ROM and supple Chest: COMMONS NORMALS: normal inspection of the chest and normal palpation of entire chest wall Resp: COMMON NORMALS: normal respiratory effort, No retractions, No use of accessory muscles and clear to auscultation bilaterally AUSCULTATION: clear to auscultation bilaterally Cardio: COMMON NORMALS: regular rate, regular rhythm and No murmurs present (Cardio) RATE: regular rate RHYTHM: regular rhythm GI: COMMON NORMALS: Normal to inspection, nondistended, normoactive bowel sounds present, Soft to palpation, non-tender and no masses PALPATION: Yes Soft to palpation OTHER: bright red stool, hemocullt positive Extremity: COMMON NORMALS: normal to inspection and full ROM Neuro: COMMON NORMALS: patient oriented x3, moves all extremities and no focal motor deficits Psych: COMMON NORMALS: mental status grossly normal, Normal thought process present and cooperative THOUGHT PROCESS: Normal thought process present Skin: COMMON NORMALS: no rashes or lesions noted and no wounds GENERAL SKIN EXAM: no rashes or lesions noted Course Vital Signs: Vital signs: Vital Signs Temperature 98.0 F 11/24/21 18:52 Pulse Rate 109 H 11/24/21 18:52 Respiratory Rate 18 11/25/21 02:08 Blood Pressure 125/76 11/25/21 02:08 Pulse Oximetry 99 11/25/21 02:08 MDM - Abdominal Pain Medical Decision Making Patient presents here with a lower GI bleed rectal exam did show some slight amount of bright red blood it is Hemoccult positive no signs of upper GI bleed here. His hemoglobin here of been 8.3 both of them his blood pressures here are normal and he states he feels fine I spoke to him at length he would like to go home he does have an appointment this month with his GI he is return if his bleeding worsens he understands and agrees to plan has had multiple scopes in the past. Lab Data : 11/25/21 02:00 11/24/21 23:50 Labs/Radiology: Laboratory Results WBC 5.6 10^3/uL (4.0-10.0) 11/24/21 23:50 RBC 2.61 10^6/uL (4.1-5.3) L 11/24/21 23:50 Hgb 8.3 g/dL (11.7-16.6) L 11/25/21 02:00 Hct 24.3 % (42.0-52.0) L 11/25/21 02:00 MCV 95.4 fl (80-94) H 11/24/21 23:50 MCH 31.8 pg (28.0-34.0) 11/24/21 23:50 MCHC 33.3 g/dL (30.0-36.0) 11/24/21 23:50 RDW 18.4 % (12.1-15.1) H 11/24/21 23:50 Plt Count 113 10^3/cmm (130-400) L 11/24/21 23:50 MPV 9.7 fL (7.4-10.4) 11/24/21 23:50 Neut % (Auto) 35.1 % 11/24/21 23:50 Lymph % (Auto) 51.5 % 11/24/21 23:50 [place] % (Auto) 10.7 % 11/24/21 23:50 Eos % (Auto) 1.1 % 11/24/21 23:50 Baso % (Auto) 1.4 % 11/24/21 23:50 Neut # (Auto) 1.98 10^3/uL (1.8-7.7) 11/24/21 23:50 Lymph # (Auto) 2.9 10^3/uL (0.8-4.8) 11/24/21 23:50 [place] # (Auto) 0.6 10^3/uL (0.2-0.9) 11/24/21 23:50 Eos # (Auto) 0.1 10^3/uL (0.0-0.8) 11/24/21 23:50 Baso # (Auto) 0.1 10^3/uL (0.0-0.1) 11/24/21 23:50 Nucleated RBC % (auto) 0 % 11/24/21 23:50 Nucleated RBCs # 0.0 /100WBC 11/24/21 23:50 PT 26.90 SECONDS (12.1-14.9) H 11/24/21 23:50 INR 2.43 (0.8-1.2) H 11/24/21 23:50 APTT 44.0 SECONDS (23.9-36.7) H 11/24/21 23:50 Sodium 133 mmol/L (136-145) L 11/24/21 23:50 Potassium 4.1 mmol/L (3.5-5.1) 11/24/21 23:50 Chloride 106 mmol/L (98-107) 11/24/21 23:50 Carbon Dioxide 17 mmol/L (22-29) L 11/24/21 23:50 Anion Gap 14.1 (5-19) 11/24/21 23:50 BUN 15 mg/dL (6-20) 11/24/21 23:50 Creatinine 0.7 mg/dL (0.7-1.2) 11/24/21 23:50 GFR Calculation 116.7 mL/min (90-130) 11/24/21 23:50 Glucose 95 mg/dL (65-115) 11/24/21 23:50 Calculated Osmolality 277 mOsm/kg (285-295) L 11/24/21 23:50 Calcium 8.4 mg/dL (8.5-10.5) L 11/24/21 23:50 Total Bilirubin 2.4 mg/dL (0.15-1.2) H 11/24/21 23:50 AST 27 U/L (0-40) 11/24/21 23:50 ALT 14 U/L (0-41) 11/24/21 23:50 Alkaline Phosphatase 89 IU/L (40-130) 11/24/21 23:50 Total Protein 6.9 g/dL (6.6-8.7) 11/24/21 23:50 Albumin 2.2 g/dL (3.5-5.2) L 11/24/21 23:50 Globulin 4.7 g/dL (1.3-4.6) H 11/24/21 23:50 Discharge Plan Discharge Patient Disposition: Home Clinical Impression: Acute lower GI bleeding Condition: Stable Prescriptions: No Action spironolactone 25 mg Tablet 25 mg PO BID 0RF lactulose 10 gram packet 10 g PO BEDTIME 0RF ferrous sulfate 324 mg (65 mg iron) tablet,delayed release (DR/EC) 324 mg PO DAILY Qty: 30 0RF cyclobenzaprine 10 mg tablet 10 mg PO TID PRN (Reason: Muscle Spasm) 0RF sucralfate 100 mg/mL suspension See Rx Instructions .ROUTE .COMPLEX 0RF Rx Instructions: 10ml po before meals and at bedtime ondansetron HCl 4 mg tablet 4 mg PO TID PRN (Reason: Nausea And Vomiting) 0RF pantoprazole 40 mg tablet,delayed release (DR/EC) 40 mg PO BID 0RF calcium 250 mg Tablet 500 mg PO DAILY 0RF cholecalciferol (vitamin D3) [Vitamin D3] 25 mcg (1,000 unit) Capsule 25 mcg PO DAILY 0RF vitamin B complex-folic acid 1 tab PO DAILY 0RF Discharge Orders: Discharge ED (Routine); Ordered 11/25/21 Ordered By: Phylicia Armas Referrals: Saba Tompkins DO [Primary Care Provider] - 1-3 days Discharge Diet: Advance as tolerated Discharge Activity: Resume usual activity Patient Instructions: Gastrointestinal Bleeding (ED) Coding Level of Care Code ED Evidence Custodian for Chg Fwd Exam Comprehensive
[2021-11-25 02:08] VITALS: BP 125/76; RESP 18; O2SAT 99
[2021-11-25 02:23] LABS: Hematocrit 24.3 % (42.0-52.0); Hemoglobin 8.3 g/dL (11.7-16.6)
[2021-11-25] MEDS: pantoprazole 40 mg SDV 80 MG IVP (02:23)
[2021-11-25 03:25] VITALS: BP 102/61; PULSE 91; RESP 18; O2SAT 100
[2021-11-25 03:29] VITALS: BP 102/61; BP 106/70; BP 117/68; PULSE 100; PULSE 80; PULSE 90
[2021-11-25 03:30] VITALS: BP 117/68; PULSE 82; RESP 16; O2SAT 98
== END 2021-11-25 03:32 | disposition home or self-care (01) ==
PROVIDERS: Physician Assistant; Emergency Provider Emergency Medicine; PCP Family Medicine
DX: K92.2 Gastrointestinal hemorrhage, unspecified (principal)
CPT/HCPCS: 80053; 85014; 85018; 85025; 85610; 85730; 86850; 86900; 96374; 99284; C9113

== ENCOUNTER 2022-01-12 22:09 | Emergency (ER) | payer BC, SELFPAY ==
[2022-01-12 22:13] VITALS: BP 132/81; PULSE 74; RESP 18; TEMP 36.7; O2SAT 98; BMI 31.1
--- NOTE | 2022-01-12 22:24 | XRR_ITS ---
PROCEDURE INFORMATION: Exam: XR Left Wrist Exam date and time: 01/12/2022 10:29 PM Age: 56 years old Clinical indication: Injury or trauma; Fall; Blunt trauma (contusions or hematomas); Left; Patient HX: Patient states fell this evening. C/O wrist pain. TECHNIQUE: Imaging protocol: XR Left wrist. Views: 3 or more views. COMPARISON: No relevant prior studies available. FINDINGS: Bones/joints: Normal. Soft tissues: Normal. XR/XR wrist LT min 3V* [id number] IMPRESSION: Unremarkable
--- NOTE | 2022-01-12 22:25 | ED_ITS ---
HPI - Extremity Problem General: Chief complaint: Extremity Injury, Upper Stated complaint: think broken L arm Time Seen by Provider: 01/12/22 22:22 History of Present Illness: Patient complains about left wrist pain that occurred with a ground-level fall at 1400 today. This occurred when he got his feet tripped up in a hole was at a gas station. Patient denies any other injuries besides abrasion to his elbow on his leg tetanus is up-to-date. Associated symptoms: Deny chest pain, fever(s) or rash Review of Systems Const: Denies: fever(s), chills or body aches Eyes: Denies: eye discomfort ENMT: Denies: throat pain Card: Denies: chest pain Resp: Denies: dyspnea GI: Denies: abdominal pain, nausea or vomiting Musc: Reports: joint pain (Left wrist pain with movement after a fall today) a nd joint swelling Skin/Breast: Denies: rash Neuro: Denies: headache(s) Psych: Denies: depression or suicidal ideation PFSH ED PFSH: Medical History Alcohol abuse Alcoholic liver disease Esophageal varices determined by endoscopy GI bleed Hypothyroidism Liver cirrhosis Surgical History H/O esophagogastroduodenoscopy H/O gastric bypass Hx of shoulder surgery Status post colonoscopy Physical Exam Const: COMMON NORMALS: no acute distress, patient oriented x3 and alert HENMT: COMMON NORMALS: normocephalic and external ears normal HEAD & SCALP: normocephalic EXTERNAL EAR: Yes external ears normal Eye: COMMON NORMALS: EOMs intact bilaterally Neck/C-Spine: COMMON NORMALS: no JVD Resp: COMMON NORMALS: normal respiratory effort and No use of accessory muscles Cardio: COMMON NORMALS: no JVD GI: INSPECTION: Yes normal to inspection Extremity: COMMON NORMALS: normal to inspection and full ROM LEFT UPPER EXTREMITY: Yes wrist (Mild swelling and tenderness to the lateral medial aspect of the wrist.) Left wrist: Yes ROM (Flexion extension good horizontal movements cause pain) and Yes neurovascular exam (Intact) Neuro: COMMON NORMALS: patient oriented x3 SENSORIUM/ORIENTATION: Yes alert Psych: COMMON NORMALS: mental status grossly normal Skin: COMMON NORMALS: no rashes or lesions noted NARRATIVE SKIN EXAM: Abrasion to left elbow and left swanson GENERAL SKIN EXAM: no rashes or lesions noted Course Vital Signs: Vital signs: Vital Signs Temperature 98.0 F 01/12/22 22:13 Pulse Rate 74 01/12/22 22:13 Respiratory Rate 18 01/12/22 22:13 Blood Pressure 132/81 01/12/22 22:13 Pulse Oximetry 98 01/12/22 22:13 MDM - Extremity (Nontraumatic) Medical Decision Making GLeft wrist sprain from a fall earlier today. Abnormalities noted. Discharge Plan Discharge Patient Disposition: Home Clinical Impression: Left wrist sprain Condition: Stable Prescriptions: No Action spironolactone 25 mg Tablet 25 mg PO BID 0RF lactulose 10 gram packet 10 g PO BEDTIME 0RF ferrous sulfate 324 mg (65 mg iron) tablet,delayed release (DR/EC) 324 mg PO DAILY Qty: 30 0RF cyclobenzaprine 10 mg tablet 10 mg PO TID PRN (Reason: Muscle Spasm) 0RF sucralfate 100 mg/mL suspension See Rx Instructions .ROUTE .COMPLEX 0RF Rx Instructions: 10ml po before meals and at bedtime ondansetron HCl 4 mg tablet 4 mg PO TID PRN (Reason: Nausea And Vomiting) 0RF pantoprazole 40 mg tablet,delayed release (DR/EC) 40 mg PO BID 0RF calcium 250 mg Tablet 500 mg PO DAILY 0RF cholecalciferol (vitamin D3) [Vitamin D3] 25 mcg (1,000 unit) Capsule 25 mcg PO DAILY 0RF vitamin B complex-folic acid 1 tab PO DAILY 0RF Discharge Orders: Discharge ED (Routine); Ordered 01/12/22 Ordered By: Nima Cobb Referrals: Saba Tompkins DO [Primary Care Provider] - Discharge Diet: Usual diet Discharge Activity: Increase activity as tolerated Patient Instructions: Wrist Sprain (ED) Activity Restrictions/Additional Instructions: Splint for the lungs needed. Apply ice to area as needed can take ibuprofen and/or Tylenol for discomfort. Follow-up your family medical provider if no significant improvement. Coding Level of Care Code ED Energy Director for Naz Fwd Exam Comprehensive
[2022-01-12 22:47] VITALS: BP 132/81; PULSE 74; RESP 18; TEMP 36.7; O2SAT 98
== END 2022-01-12 22:49 | disposition home or self-care (01) ==
PROVIDERS: Emergency Provider Nurse Practitioner Family; PCP Family Medicine
DX: S63.502A Unspecified sprain of left wrist, initial encounter (principal); W01.0XXA Fall on same level from slipping, tripping and stumbling without subsequent striking against object, initial encounter; Y92.524 Gas station as the place of occurrence of the external cause
CPT/HCPCS: 73110; 99283